=== PATIENT | male | born 1970 | race Caucasian/White ===

== ENCOUNTER 2019-04-28 08:43 | Day surgery (SDC) | payer BC ==
[2019-04-26 10:43] VITALS: BMI 28.0
[~2019-04-28 08:43] MED LIST: LACTATED RINGERS 1,000 ML IV SCH; LIDOCAINE 1% 20 ML VIAL (10MG/ML) FOR IV START INTRADERMA PRN
[2019-04-28 09:04] VITALS: RESP 18; TEMP 97.4
[2019-04-28] MEDS ORDERED: PROPOFOL 10 MG/ML 20 ML VIAL IV ONE (09:44)
[2019-04-28] MEDS ORDERED: LIDOCAINE 1% INJ 10MG/ML (20 ML MDV) ONE (09:44)
--- NOTE | 2019-04-28 09:48 | P.GSHP ---
History of Present Illness H&P Date: 04/28/19 Chief Complaint: Colon cancer screening Patient here today for colonoscopy. Patient's last colonoscopy 10-15 years ago. No bowel related complaints. Family history of numerous polyps in his father. Patient's last colonoscopy was normal. Past Medical History Past Medical History: GERD/Reflux, Hyperlipidemia, Hypertension, Sleep Apnea/CPAP/BIPAP Additional Past Medical History / Comment(s): IBS,restless leg syndrome,no cpap History of Any Multi-Drug Resistant Organisms: None Reported Past Surgical History: Orthopedic Surgery, Tonsillectomy Additional Past Surgical History / Comment(s): deviated septum repair, vasectomy,tube placed left ear. Past Anesthesia/Blood Transfusion Reactions: No Reported Reaction Smoking Status: Never smoker - Past Family History Mother Family Medical History: COPD Father Family Medical History: AICD/Pacemaker, Chest Pain / Angina, Congestive Heart Failure (CHF), Coronary Artery Disease (CAD), GERD/Reflux, Myocardial Infarction ([place]), Vascular Disorder Additional Family Medical History / Comment(s): heart caths with stents Medications and Allergies Home Medications Medication Instructions Recorded Confirmed Type Ibuprofen [Motrin] 800 mg PO Q8HR PRN 07/08/15 04/28/19 History Omeprazole [PriLOSEC] 20 mg PO HS 07/08/15 04/28/19 History Pramipexole [Mirapex] 0.25 mg PO HS 07/08/15 04/28/19 History Lisinopril [Zestril] 10 mg PO QAM 04/26/19 04/28/19 History Pravastatin Sodium [Pravachol] 20 mg PO HS 04/26/19 04/28/19 History Allergies Allergy/AdvReac Type Severity Reaction Status Date / Time No Known Allergies Allergy Verified 04/28/19 09:05 Surgical - Exam Vital Signs Temp Pulse Resp BP Pulse Ox 97.4 F L 66 18 141/90 99 04/28/19 09:03 04/28/19 09:03 04/28/19 09:03 04/28/19 09:03 04/28/19 09:03 Physical exam: General: Well-developed, well-nourished HEENT: Normocephalic, sclerae nonicteric Abdomen: Nontender, nondistended Extremities: No edema Neuro: Alert and oriented Assessment and Plan (1) Colon cancer screening Narrative/Plan: Will proceed with colonoscopy at this time Current Visit: Yes Status: Acute Code(s): Z12.11 - ENCOUNTER FOR SCREENING FOR MALIGNANT NEOPLASM OF COLON SNOMED Code(s): 806098049
--- NOTE | 2019-04-28 10:00 | P.PCN ---
Date of Procedure: 04/28/19 Procedure(s) Performed: PREOPERATIVE DIAGNOSIS: Colon cancer screening, family history of colon polyps POSTOPERATIVE DIAGNOSIS: Diverticulosis PROCEDURE: Colonoscopy ANESTHESIA: MAC SURGEON: Demetrio Mcknight M.D. SPECIMENS: None ENDOSCOPIC PROCEDURE: The patient was placed on the endoscopy table in the left decubitus position. The Olympus colonoscope was inserted into the anus and passed under direct visualization to the base of the cecum. The appendiceal orifice was visualized. From that point the scope was slowly withdrawn inspecting all surfaces carefully. There were no neoplastic inflammatory or polypoid lesions throughout the cecum, ascending, transverse, descending, sigmoid and rectum. There was scattered diverticulosis noted throughout the colon. Digital rectal examination was normal. The patient was taken to the recovery room in stable condition per anesthesia guidelines. RECOMMENDATIONS: Increase fiber. Follow-up colonoscopy 5 years given the family history.
[2019-04-28 10:26] VITALS: BP 123/75; PULSE 69
== END 2019-04-28 10:35 | disposition home or self-care (01) ==
LOC: ORWHC2ENDO 08:43
PROVIDERS: ATTEND Surgery
DX: Z12.11 Encounter for screening for malignant neoplasm of colon (principal); K57.30 Diverticulosis of large intestine without perforation or abscess without bleeding; K58.9 Irritable bowel syndrome, unspecified; I10 Essential (primary) hypertension; E78.5 Hyperlipidemia, unspecified; K21.9 Gastro-esophageal reflux disease without esophagitis; G47.33 Obstructive sleep apnea (adult) (pediatric); G25.81 Restless legs syndrome; Z83.71 Family history of colonic polyps; Z90.89 Acquired absence of other organs; Z98.890 Other specified postprocedural states; Z98.52 Vasectomy status; Z96.22 Myringotomy tube(s) status; Z79.1 Long term (current) use of non-steroidal anti-inflammatories (NSAID); Z79.899 Other long term (current) drug therapy; Z83.6 Family history of other diseases of the respiratory system; Z82.49 Family history of ischemic heart disease and other diseases of the circulatory system
CPT/HCPCS: G0105; J2001; J2704

== ENCOUNTER → 2020-08-14 | Outpatient (CLI) | payer BC | END | disposition home or self-care (01) | LOC: LABWHC1 15:26 | PROVIDERS: ATTEND Family Medicine | DX: Z20.822 Contact with and (suspected) exposure to COVID-19 (principal) | CPT/HCPCS: U0003; C9803 ==

== ENCOUNTER → 2020-10-17 | Outpatient (CLI) | payer BC | END | disposition home or self-care (01) | LOC: LABWHC1 16:19 | PROVIDERS: ATTEND Family Medicine | DX: Z20.822 Contact with and (suspected) exposure to COVID-19 (principal) | CPT/HCPCS: U0003; C9803 ==

== ENCOUNTER 2023-01-25 15:25 | Observation (INO) | payer BC ==
[2023-01-25 16:30] LABS: Basophils % (A) 0 %; Eosinophils # (A) 0.2 k/uL (0-0.7); Eosinophils % (A) 2 %; HCT 48.4 % (39.0-53.0); Lymphocytes # (A) 2.1 k/uL (1.0-4.8); Lymphocytes % (A) 19 %; MCH 32.2 pg (25.0-35.0); MCHC 35.2 g/dL (31.0-37.0); MCV 91.6 fL (80.0-100.0); Mean Platelet Volume 6.7; Monocytes # (A) 0.6 k/uL (0-1.0); Monocytes % (A) 6 %; Neutrophils # (A) 7.6 k/uL (1.3-7.7); Neutrophils % (A) 72 %; Platelet Count 175 k/uL (150-450); RBC 5.29 m/uL (4.30-5.90); RDW 12.8 % (11.5-15.5); WBC 10.7 k/uL (3.8-10.6)
--- NOTE | 2023-01-25 16:35 | XR ---
EXAMINATION TYPE: XR chest 2V DATE OF EXAM: 01/25/2023 4:30 PM COMPARISON: Chest radiographs from 05/04/2011 TECHNIQUE: XR chest 2V Frontal and lateral views of the chest. CLINICAL INDICATION:Male, 52 years old with history of Chest Pain; FINDINGS: Lungs/Pleura: There is no evidence of pleural effusion, focal consolidation, or pneumothorax. Pulmonary vascularity: Unremarkable. Heart/mediastinum: Cardiomediastinal silhouette is unremarkable. Musculoskeletal: No acute osseous pathology. IMPRESSION: No acute cardiopulmonary disease/process.
[2023-01-25 16:37] LABS: INR 0.9 (<1.2); Partial Thromboplastin Time 24.7 sec (22.0-30.0); Prothrombin Time 9.4 sec (9.0-12.0)
[2023-01-25] MEDS ORDERED: NITROGLYCERIN OINT 1 INCH/GM PACKET TOPICAL STA (16:58)
[2023-01-25] MEDS ORDERED: ACETAMINOPHEN TAB 325 MG TAB PO STA ×2 (16:58→22:08)
[2023-01-25 17:02] LABS: ALT 41 U/L (4-49); AST 39 U/L (17-59); African American GFR (CKD) >90 (>60 ml/min/1.73 sqM); Albumin 4.2 g/dL (3.5-5.0); Alkaline Phosphatase 95 U/L (38-126); Anion Gap 10 mmol/L; Blood Urea Nitrogen 20 mg/dL (9-20); Calcium 9.1 mg/dL (8.4-10.2); Carbon Dioxide 21 mmol/L (22-30); Chloride 106 mmol/L (98-107); Glucose 96 mg/dL (74-99); Lipase 180 U/L (23-300); Non-African American GFR(CKD) >90 (>60 ml/min/1.73 sqM); Potassium 4.2 mmol/L (3.5-5.1); Sodium 137 mmol/L (137-145); Total Bilirubin 0.6 mg/dL (0.2-1.3); Total Protein 7.1 g/dL (6.3-8.2)
[2023-01-25 17:10] LABS: NT-Pro-B-Type Natriuretic Pept <20 pg/mL
--- NOTE | 2023-01-25 18:30 | ED ---
Chest Pain HPI - General Chief Complaint: Chest Pain Stated Complaint: Chest pain Time Seen by Provider: 01/25/23 15:45 Source: patient Mode of arrival: ambulatory Limitations: no limitations - History of Present Illness Initial Comments: 52-year-old male with past nuchal history of hypertension, hyperlipidemia, sleep apnea who presents to the emergency department reporting chest pain. States it's been going on since Wednesday night. Described as a pressure sensation in the middle of his chest. Pain has been constant and worsening. States that he has a large family history of cardiac disease. His father is an LVAD patient and had his first heart attack at 41. He follows with a cosmetic account coordinator because of his large family history however has not had a workup in the past several years. Was supposed to have an appointment last week however missed it. He denies associated shortness of breath. No nausea or vomiting. Denies ripping or tearing sensation to his back. Does admit that the pain goes to his left arm. No fevers or cough. No lower extremity swelling. No history of DVT or PE. No other alleviating, precipitating or modifying factors - Related Data Home Medications Medication Instructions Recorded Confirmed Ibuprofen [Motrin] 800 mg PO Q8HR PRN 07/08/15 01/25/23 Omeprazole [PriLOSEC] 20 mg PO HS 07/08/15 01/25/23 Pramipexole [Mirapex] 0.5 mg PO HS 01/25/23 01/25/23 Rosuvastatin [Crestor] 20 mg PO HS 01/25/23 01/25/23 lisinopriL [Zestril] 10 mg PO DAILY 01/25/23 01/25/23 tadalafiL 20 mg PO Q48H PRN 01/25/23 01/25/23 Allergies Allergy/AdvReac Type Severity Reaction Status Date / Time No Known Allergies Allergy Verified 01/25/23 16:32 Review of Systems ROS Statement: Those systems with pertinent positive or pertinent negative responses have been documented in the HPI. ROS Other: All systems not noted in ROS Statement are negative. Past Medical History Past Medical History: GERD/Reflux, Hyperlipidemia, Hypertension, Sleep A pnea/CPAP/BIPAP Additional Past Medical History / Comment(s): IBS,restless leg syndrome,no cpap History of Any Multi-Drug Resistant Organisms: None Reported Past Surgical History: Orthopedic Surgery, Tonsillectomy Additional Past Surgical History / Comment(s): deviated septum repair, vasectomy,tube placed left ear. Past Anesthesia/Blood Transfusion Reactions: No Reported Reaction Past Psychological History: No Psychological Hx Reported Smoking Status: Never smoker Past Alcohol Use History: Occasional Past Drug Use History: None Reported - Past Family History Mother Family Medical History: COPD Father Family Medical History: AICD/Pacemaker, Chest Pain / Angina, Congestive Heart Fa ilure (CHF), Coronary Artery Disease (CAD), GERD/Reflux, Myocardial Infarction ([place]), Vascular Disorder Additional Family Medical History / Comment(s): heart caths with stents General Exam Limitations: no limitations General appearance: alert, in no apparent distress Head exam: Present: atraumatic, normocephalic, normal inspection Eye exam: Present: normal appearance, PERRL, EOMI. Absent: scleral icterus, conjunctival injection, periorbital swelling ENT exam: Present: normal exam, mucous membranes moist Neck exam: Present: normal inspection. Absent: tenderness, meningismus, lymphadenopathy Respiratory exam: Present: normal lung sounds bilaterally. Absent: respiratory distress, wheezes, rales, rhonchi, stridor Cardiovascular Exam: Present: regular rate, normal rhythm, normal heart sounds. Absent: systolic murmur, diastolic murmur, rubs, gallop, clicks GI/Abdominal exam: Present: soft, normal bowel sounds. Absent: distended, tenderness, guarding, rebound, rigid Extremities exam: Present: normal inspection, full ROM, normal capillary refill. Absent: tenderness, pedal edema, joint swelling, calf tenderness Back exam: Present: normal inspection Neurological exam: Present: alert, oriented X3, CN II-XII intact Psychiatric exam: Present: normal affect, normal mood Skin exam: Present: warm, dry, intact, normal color. Absent: rash Course Vital Signs 01/25/23 01/25/23 01/25/23 15:33 15:57 16:41 Temperature 97.8 F 97.8 F Pulse Rate 79 76 80 Respiratory 18 18 18 Rate Blood Pressure 184/119 140/103 140/103 O2 Sat by Pulse 97 96 96 Oximetry 01/25/23 01/25/23 01/25/23 17:23 20:00 20:32 Temperature Pulse Rate 72 76 84 Respiratory 18 16 16 Rate Blood Pressure 145/99 145/96 145/84 O2 Sat by Pulse 97 95 95 Oximetry Chest Pain MDM - MDM Was pt. sent in by a medical professional or institution (MARK Mackay, TELESCOPE OPERATOR, urgent care, hospital, or residential...) When possible be specific @ -No Did you speak to anyone other than the patient for history (EMS, parent, family, police, friend...)? What history was obtained from this source @ -No Did you review nursing and triage notes (agree or disagree)? Why? @ -I reviewed and agree with nursing and triage notes Were old charts reviewed (outside hosp., previous admission, EMS record, old EKG, old radiological studies, urgent care reports/EKG's, residential records)? Report findings @ -No old charts were reviewed Differential Diagnosis (chest pain, altered mental status, abdominal pain women, abdominal pain men, vaginal bleeding, weakness, fever, dyspnea, syncope, headache, dizziness, GI bleed, back pain, seizure, CVA, palpatations, mental health, musculoskeletal)? @ -Differential Chest Pain: Stable Angina, Unstable Angina, STEMI, NSTEMI Aortic Dissection, Pneumothorax, Musculoskeletal, Esophageal Spasm GERD, Cholecystitis, Pancreatitis, Zoster, this is not meant to be an all-inclusive list. EKG interpreted by me (3pts min.). @ -Yes at 1531 and demonstrates sinus rhythm with a rate of 86. MN interval 182. QRS 92. QTC 395. No acute ST segment elevations or depressions Repeat EKG done at 1724 demonstrates sinus rhythm with rate of 70.. 191. QRS 112. QTC of 409. No acute ST segment elevations or depressions X-rays interpreted by me (1pt min.). @ -Yes and demonstrates no acute process CT interpreted by me (1pt min.). @ -None done U/S interpreted by me (1pt. min.). @ -None done What testing was considered but not performed or refused? (CT, X-rays, U/S, labs)? Why? @ -None What meds were considered but not given or refused? Why? @ -None Did you discuss the management of the patient with other professionals (professionals i.e. MARK Mackay, TELESCOPE OPERATOR, lab, RT, psych nurse, oncology social worker, owner professional engineer, teacher, records officer, case assembler)? Give summary @ -I spoke with Dr. owens who was agreeable to admit the patient Was smoking cessation discussed for >3mins.? @ -No Was critical care preformed (if so, how long)? @ -No Were there social determinants of health that impacted care today? How? (Homelessness, low income, unemployed, alcoholism, drug addiction, transportation, low edu. Level, literacy, decrease access to med. care, usp, rehab)? @ -No Was there de-escalation of care discussed even if they declined (Discuss DNR or withdrawal of care, Hospice)? DNR status @ -No What co-morbidities impacted this encounter? (DM, HTN, Smoking, COPD, CAD, Cancer, CVA, ARF, Chemo, Hep., AIDS, mental health diagnosis, sleep apnea, morbid obesity)? @ -hyperlipidemia, hypertension, sleep apnea Was patient admitted / discharged? Hospital course, mention meds given and route, prescriptions, significant lab abnormalities, going to OR and other pertinent info. @ -Upon arrival patient was placed into room 4. A thorough history and physical exam was performed. IV access was established and laboratory studies were conducted. Chest x-ray was performed. Results are discussed with the patient. He continues to have some active chest pain and therefore he is given 4 chewable aspirins and a nitro patch. I did discuss the due to the patient's risk factors that he should be admitted for cardiology consultation for which the patient was agreeable. Called and spoke with Dr. owens who agreed to admit the patient. He was taken to the floor in stable condition Undiagnosed new problem with uncertain prognosis? @ -Yes Drug Therapy requiring intensive monitoring for toxicity (Heparin, Nitro, Insulin, Cardizem)? @ -No Were any procedures done? @ -No Diagnosis/symptom? @ -Acute chest pain, possible ACS Acute, or Chronic, or Acute on Chronic? @ -Acute Uncomplicated (without systemic symptoms) or Complicated (systemic symptoms)? @ -Complicated Side effects of treatment? @ -No Exacerbation, Progression, or Severe Exacerbation? @ -No Poses a threat to life or bodily function? How? (Chest pain, [place], [place], pneumonia, PE, COPD, DKA, ARF, appy, cholecystitis, CVA, Diverticulitis, Homicidal, Suicidal, threat to staff... and all critical care pts) @ -Yes, patient's chest pain may represent acute coronary syndrome Disposition Clinical Impression: Chest pain Disposition: ADMITTED IP TO THIS HOSP Condition: Stable Is patient prescribed a controlled substance at d/c from ED?: No Time of Disposition: 18:30 Decision to Admit Reason: Admit from EC Decision Date: 01/25/23 Decision Time: 18:30
[2023-01-25] MEDS ORDERED: NALOXONE 0.4 MG/ML 1 ML VIAL IV PRN (18:31)
[2023-01-25] MEDS ORDERED: ASPIRIN 81 MG PO STA (18:33)
[2023-01-25] MEDS: FAMOTIDINE 20 MG/2 ML VIAL IV SCH (22:18)
[2023-01-25] MEDS: PRAMIPEXOLE 0.5 MG TAB PO SCH (22:18)
[2023-01-25] MEDS: ATORVASTATIN 20 MG TAB PO SCH (22:20)
[2023-01-26] MEDS: lisinopriL 10 MG TAB PO SCH (09:18)
[2023-01-26] MEDS: FAMOTIDINE 20 MG/2 ML VIAL IV SCH ×2 (09:18→20:34)
--- NOTE | 2023-01-26 10:35 | CA ---
Transthoracic Echo Report Name: Young Steele Age: 52 Gender: M : 1970 Exam Date: 01/26/2023 07:38 Exam Location: [place] [facility] Ht (in): 75 Wt (lb): 220 Ordering Physician: Damaris Ewing DO Attending/Referring Phys: [id number], Kaylin Cash Register Balancer Malinda Rojas [facility] Procedure CPT: Indications: Chest Pain Cardiac Hx: Technical Quality: Fair Contrast 1: Total Dose (mL): Contrast 2: Total Dose (mL): MEASUREMENTS (Male / Female) Normal Values 2D ECHO LV Diastolic Diameter PLAX 4.9 cm 4.2 - 5.9 / 3.9 - 5.3 cm LV Systolic Diameter PLAX 3.1 cm IVS Diastolic Thickness 0.9 cm 0.6 - 1.0 / 0.6 - 0.9 cm LVPW Diastolic Thickness 1.1 cm 0.6 - 1.0 / 0.6 - 0.9 cm LV Relative Wall Thickness 0.4 LVOT Diameter 2.0 cm Ascending Aorta Diameter 3.7 cm M-MODE Aortic Root Diameter MM 3.1 cm LA Systolic Diameter MM 4.4 cm LA Ao Ratio MM 1.4 AV Cusp Separation MM 2.4 cm DOPPLER AV Peak Velocity 131.7 cm/s AV Peak Gradient 6.9 mmHg AV Mean Velocity 101.3 cm/s AV Mean Gradient 4.4 mmHg AV Velocity Time Integral 32.7 cm LVOT Peak Velocity 120.4 cm/s LVOT Peak Gradient 5.8 mmHg LVOT Velocity Time Integral 27.2 cm LVOT Stroke Volume 88.7 cm??? LVOT Stroke Volume Index 38.8 ml/m??? LVOT Cardiac Index 2034.5 cm???/min???m??? AV Area Cont Eq vti 2.7 cm??? AV Area Cont Eq pk 3.0 cm??? Mitral E Point Velocity 64.4 cm/s Mitral A Point Velocity 68.8 cm/s Mitral E to A Ratio 0.9 MV Deceleration Time 195.9 ms LV E' Lateral Velocity 9.7 cm/s Mitral E to LV E' Lateral Ratio 6.7 LV E' Septal Velocity 8.2 cm/s Mitral E to LV E' Septal Ratio 7.8 TR Peak Velocity 204.6 cm/s TR Peak Gradient 16.7 mmHg Right Atrial Pressure 3.0 mmHg Pulmonary Artery Systolic Pressu 19.7 mmHg Right Ventricular Systolic Press 19.7 mmHg FINDINGS Left Ventricle Normal Left ventricular size, wall thickness, systolic function with no obvious regional wall motion abnormalities. Left ventricular ejection fraction is estimated at 55-60 %. Right Ventricle Moderate right ventricular dilatation. Normal right ventricle systolic pressure Right Atrium Mild right atrial dilatation. Left Atrium Mild left atrial dilatation. Mitral Valve Structurally normal mitral valve. moderate mitral regurgitation. Aortic Valve Trileaflet aortic valve. No aortic regurgitation. Tricuspid Valve Structurally normal tricuspid valve. Mild tricuspid regurgitation. Pulmonic Valve Structurally normal pulmonic valve. No pulmonic regurgitation. Pericardium No pericardial effusion. Aorta Normal size aortic root and proximal ascending aorta. CONCLUSIONS 1. Normal left ventricular size and systolic function 2. Dilated right ventricle with normal right ventricle systolic pressure 3. Moderate mitral with mild tricuspid regurgitation Previewed by: Dr. Fady Andre MD (Electronically Signed) Final Date: 26 January 2023 10:33
--- NOTE | 2023-01-26 10:46 | P.CRDCN ---
History of Present Illness Consult date: 01/26/23 Consult reason: chest pain History of present illness: History of present illness: This is a 52-year-old male patient of Dr. Frias with past medical history of hypertension, dyslipidemia, family history of premature coronary artery disease. Patient states that he was cooking on the [employer] on Wednesday and had to get up early in the morning on Wednesday but in the middle of the night he felt a sensation of something was stuck in his esophagus. He got up and drank some water. On Wednesday through the whole day he felt rundown and tired which co ntinued on Wednesday and he slept all day. He had a weird sensation in his hand. Pain is worse when he takes a deep breath. No change with movement. He is normally very active. He denies having any dizziness or lightheadedness, no blood in his stools, no history of CVA or stroke. He does have some palpitations he noted that when he laid on his left side this morning he had palpitations which happened one time. No history of diabetes or COPD. Father had NE at age 45. EKG sinus rhythm with no acute changes Chest x-ray: No acute process Echocardiogram performed on this admission reveals EF 55-60%, normal left ventricular size and systolic function, dilated right ventricle with normal righ t ventricular systolic pressure. Moderate mitral and mild tricuspid regurgitation. WBC 10.7, hemoglobin 17, platelet count 175. INR 0.9. CMP is unremarkable. Magnesium 2.0. Troponin negative 3. Lipase 180. Home cardiac medications: Lisinopril 10 mg daily, Crestor 20 mg at bedtime Review Of Systems: At the time of my evaluation: Constitutional: No fever, no chills. No weakness, fatigue or lethargy. EENT: No headache. No dizziness. Lungs: No shortness of breath, cough, no sputum production. No wheezing. Cardiovascular: No chest pain, no lower extremity edema. No palpitations. No p aroxysmal nocturnal dyspnea. No orthopnea. No lightheadedness or dizziness. No syncopal episodes. Abdominal: No abdominal pain. No nausea, vomiting. No diarrhea. No constipation. No bloody or tarry stools. Genitourinary: No dysuria.. No urinary retention. Musculoskeletal: No myalgias. No muscle weakness, no frequent falls. No back pain. No neck pain. Integumentary: No wounds. No rash. No unusual bruising. Neurologic: No aphasia. No facial droop. No change in mentation. No head injury. No headache. Physical examination: Gen: This is a 52-year-old male. He is resting in bed and appears to be comfortable and in no acute distress VS: reviewed HEENT: Head is atraumatic, normocephalic. Pupils equal, round. Sclerae is anicteric. NECK: Supple. No JVD. . LUNGS: Clear to auscultation. No wheezes or rhonchi. No intercostal retractions. HEART: Regular rate and rhythm. No murmur. ABDOMEN: Soft No tenderness. EXTREMITIES: No pedal edema. No calf tenderness. NEUROLOGICAL: Patient is awake, alert and oriented x3. Assessment: Chest pain, acute coronary syndrome ruled out Hypertension Dyslipidemia Family history of premature coronary artery disease Plan: Resume home medications Obtain stress echocardiogram today Obtain 2-D echocardiogram and Doppler study to assess cardiac structure and function If stress test and echocardiogram are unremarkable, patient is cleared for discharge and may follow-up with Dr. Frias in 1-2 weeks. Thank you kindly for this consultation. Nurse practitioner note has been reviewed, I agree with documented findings and plan of care. Patient was seen and examined. Past Medical History Past Medical History: GERD/Reflux, Hyperlipidemia, Hypertension, Sleep Apnea/CPAP/BIPAP Additional Past Medical History / Comment(s): IBS,restless leg syndrome,no cpap History of Any Multi-Drug Resistant Organisms: None Reported Past Surgical History: Orthopedic Surgery, Tonsillectomy Additional Past Surgical History / Comment(s): deviated septum repair, vasectomy,tube placed left ear. Past Anesthesia/Blood Transfusion Reactions: No Reported Reaction Past Psychological History: No Psychological Hx Reported Smoking Status: Never smoker Past Alcohol Use History: Occasional Past Drug Use History: None Reported - Past Family History Mother Family Medical History: COPD Father Family Medical History: AICD/Pacemaker, Chest Pain / Angina, Congestive Heart Failure (CHF), Coronary Artery Disease (CAD), GERD/Reflux, Myocardial Infarction ([place]), Vascular Disorder Additional Family Medical History / Comment(s): heart caths with stents Medications and Allergies Home Medications Medication Instructions Recorded Confirmed Type Ibuprofen [Motrin] 800 mg PO Q8HR PRN 07/08/15 01/25/23 History Omeprazole [PriLOSEC] 20 mg PO HS 07/08/15 01/25/23 History Pramipexole [Mirapex] 0.5 mg PO HS 01/25/23 01/25/23 History Rosuvastatin [Crestor] 20 mg PO HS 01/25/23 01/25/23 History lisinopriL [Zestril] 10 mg PO DAILY 01/25/23 01/25/23 History tadalafiL 20 mg PO Q48H PRN 01/25/23 01/25/23 History Allergies Allergy/AdvReac Type Severity Reaction Status Date / Time No Known Allergies Allergy Verified 01/25/23 16:32 Physical Exam Vitals: Vital Signs Temp Pulse Pulse Resp BP BP Pulse Ox 01/26/23 00:01 98.0 F 74 15 119/74 94 L 01/25/23 20:45 98.1 F 78 18 163/78 96 01/25/23 20:32 84 16 145/84 95 01/25/23 20:00 76 16 145/96 95 01/25/23 17:23 72 18 145/99 97 01/25/23 16:41 80 18 140/103 96 01/25/23 15:57 97.8 F 76 18 140/103 96 01/25/23 15:33 97.8 F 79 18 184/119 97 Intake and Output 01/25/23 01/26/23 01/26/23 22:59 06:59 14:59 Other: # Voids 1 2 Weight 99.79 kg Results 01/25/23 16:06 01/25/23 16:06 Cardiac Enzymes 01/25/23 01/25/23 01/25/23 Range/Units 16:06 16:06 21:25 AST 39 (17-59) U/L Troponin I <0.012 <0.012 (0.000-0.034) ng/mL 01/25/23 Range/Units 23:54 AST (17-59) U/L Troponin I <0.012 (0.000-0.034) ng/mL Coagulation 01/25/23 Range/Units 16:06 PT 9.4 (9.0-12.0) sec APTT 24.7 (22.0-30.0) sec CBC 01/25/23 Range/Units 16:06 WBC 10.7 H (3.8-10.6) k/uL RBC 5.29 (4.30-5.90) m/uL Hgb 17.0 (13.0-17.5) gm/dL Hct 48.4 (39.0-53.0) % Plt Count 175 (150-450) k/uL Comprehensive Metabolic Panel 01/25/23 Range/Units 16:06 Sodium 137 (137-145) mmol/L Potassium 4.2 (3.5-5.1) mmol/L Chloride 106 (98-107) mmol/L Carbon Dioxide 21 L (22-30) mmol/L BUN 20 (9-20) mg/dL Creatinine 0.84 (0.66-1.25) mg/dL Glucose 96 (74-99) mg/dL Calcium 9.1 (8.4-10.2) mg/dL AST 39 (17-59) U/L ALT 41 (4-49) U/L Alkaline Phosphatase 95 (38-126) U/L Total Protein 7.1 (6.3-8.2) g/dL Albumin 4.2 (3.5-5.0) g/dL Current Medications Generic Name Dose Route Start Last Admin Trade Name Freq PRN Reason Stop Dose Admin Acetaminophen 325 mg 01/25/23 22:08 Acetaminophen Tab 325 Mg Tab PO Q6HR PRN Fever and/ or Pain Atorvastatin Calcium 20 mg 01/25/23 21:30 01/25/23 22:20 Atorvastatin 20 Mg Tab PO 20 mg HS HERMANN Administration Famotidine 20 mg 01/25/23 21:30 01/25/23 22:18 Famotidine 20 Mg/2 Ml Vial IV 20 mg Q12HR HERMANN Administration Lisinopril 10 mg 01/26/23 09:00 Lisinopril 10 Mg Tab PO DAILY HERMANN Naloxone HCl 0.2 mg 01/25/23 18:31 Naloxone 0.4 Mg/Ml 1 Ml Vial IV Q2M PRN Opioid Reversal Pramipexole Dihydrochloride 0.5 mg 01/25/23 21:30 01/25/23 22:18 Pramipexole 0.5 Mg Tab PO 0.5 mg HS HERMANN Administration Intake and Output 01/25/23 01/26/23 01/26/23 22:59 06:59 14:59 Other: # Voids 1 2 Weight 99.79 kg 01/25/23 16:06 01/25/23 16:06
[2023-01-26 11:09] LABS: Basophils # (A) 0.04 X 10*3/uL (0.00-0.10); Basophils % (A) 0.6 %; Eosinophils # (A) 0.15 X 10*3/uL (0.04-0.35); Eosinophils % (A) 2.2 %; HCT 43.6 % (39.6-50.0); HGB 15.3 d/dL (13.0-17.0); Lymphocytes # (A) 2.25 X 10*3/uL (0.90-5.00); Lymphocytes % (A) 33.5 %; MCHC 35.1 d/dL (32.0-37.0); MCV 88.3 FL (80.0-97.0); Mean Platelet Volume 8.8 FL (9.5-12.2); Monocytes # (A) 0.66 X 10*3/uL (0.20-1.00); Monocytes % (A) 9.8 %; NRBC Per 100 WBC 0 X 10*3/uL (0.00-0.01); Neutrophils # (A) 3.59 X 10*3/uL (1.80-7.70); Neutrophils % (A) 53.6 %; Platelet Count 162 X 10*3/uL (140-440); RBC 4.94 X 10*6/uL (4.40-5.60); RDW 12.5 % (11.5-14.5); WBC 6.71 X 10*3/uL (4.50-10.00)
[2023-01-26 11:19] LABS: Blood Urea Nitrogen 21.1 mg/dL (9.0-27.0); Carbon Dioxide 23.6 mmol/L (21.6-31.8); Chloride 107 mmol/L (96-109); Glucose 96 mg/dL (70-110); Potassium 4.2 mmol/L (3.5-5.5); Sodium 142 mmol/L (135-145)
[2023-01-26] MEDS ORDERED: lisinopriL 5 MG TAB PO STA (12:05)
--- NOTE | 2023-01-26 15:02 | CA ---
Stress Echo Report Young Steele Age: 52 Gender: M : 1970 Exam Date: 01/26/2023 12:01 Exam Location: [facility] Ht (in): 75 Wt (lb): 220 Ordering Physician: Luanne Rodriguez Referring Physician: Michael Stroud;[id number] Light Servicer Supervisor: Mike Thomas Technologist Procedure CPT: Indication: CP ICD-9 Codes: Rhythm: Patient History: Cardiac Medications: Medications in past 24 hours: Contrast: Stress Results Protocol: Frederick Total dose(mL): Exercise Duration (min:sec): 12:[address] Depression (mm): 0 Angina Score: 0 Amato Score: 12 METS: 12.3 Resting HR: 60 Resting BP: 141 / 88 Peak HR: 154 Peak BP: 206 / 66 Max Predicted HR: 166 93 % Max Predicted HR Target HR: 141 Double Product: [id number] Stress Summary: The patient's target heart rate was achieved BP Response: Reason for Termination: Reached target heart rate or work-load Cardiac Symptoms: No symptoms ECG Analysis Resting ECG: Normal sinus rhythm, normal ECG Stress ECG: No abnormal ST/T wave changes with exercise Arrhythmia: None Echo Analysis Resting Echo: Normal resting echocardiogram. Peak Echo Analysis: Normal wall thickening and motion MEASUREMENTS (Male/Female) Normal Values CONCLUSIONS Patient falls into low-risk group (DTS >= +5). This associates the patient with an annual CV mortality <= 0.5%. 1. Excellent exercise tolerance 2. Normal electrocardiographic response to exercise 3. Normal stress echocardiogram with no evidence of stress induced ischemia Dr. Fady Andre MD (Electronically Signed) Final Date: 26 January 2023 15:01
--- NOTE | 2023-01-26 15:13 | P.HPIM ---
History of Present Illness H&P Date: 01/26/23 This is a 52 year old male with medical history of hypertension, hyperlipidemia, GERD, sleep apnea does not use CPAP, rest less leg and frequent alcohol use. Never smoker. Patient has strong premature cardiac family history his father has undergone multiple cardiac stenting and currently uses an LVAD device. Patient presents with complaints of feeling as if something is stuck in his throat this has been ongoing since wednesday. Sensation is in the middle of his throat and did not improve with drinking water. Patient states he is able to swallow and eat normally. No nausea or vomiting. He has been fatigued since Wednesday/Wednesday and on Wednesday was sleeping all day. Patient also reports a weird sensation to his left arm and hand. Patient denies any associated dizziness, lightheadedness. Patient denies fever or chills. Initial work up reveals sinus rhythm on EKG. Chest xray negative. Echocardiogram reveals EF 55-60% with normal LV size and systolic function, dilated right ventricle with normal right ventricular systolic pressure, moderate MR and mild TR. Troponin level is negative x3, had mild elevated white count which has since normalized. Cardiology is consulted and patient to undergo dobutamine stress. Patient may benefit from GI evaluation and endoscopy if stress test is negative. REVIEW OF SYSTEMS: CONSTITUTIONAL: No fever, no malaise, Reports fatigue. HEENT: No recent visual problems or hearing problems. Denied any sore throat. CARDIOVASCULAR: Reports chest pain, orthopnea, PND, no palpitations, no syncope. PULMONARY: No shortness of breath, no cough, no hemoptysis. GASTROINTESTINAL: No diarrhea, no nausea, no vomiting, no abdominal pain. NEUROLOGICAL: No headaches, no weakness, no numbness. HEMATOLOGICAL: Denies any bleeding or petechiae. GENITOURINARY: Denies any burning micturition, frequency, or urgency. MUSCULOSKELETAL/RHEUMATOLOGICAL: Denies any joint pain, swelling, or any muscle pain. ENDOCRINE: Denies any polyuria or polydipsia. The rest of the 14-point review of systems is negative. PHYSICAL EXAMINATION: GENERAL: The patient is alert and oriented x3, not in any acute distress. Well developed, well nourished. HEENT: Pupils are round and equally reacting to light. EOMI. No scleral icterus. No conjunctival pallor. Normocephalic, atraumatic. No pharyngeal erythema. No thyromegaly. CARDIOVASCULAR: S1 and S2 present. No murmurs, rubs, or gallops. PULMONARY: Chest is clear to auscultation, no wheezing or crackles. ABDOMEN: Soft, nontender, nondistended, normoactive bowel sounds. No palpable organomegaly. MUSCULOSKELETAL: No joint swelling or deformity. EXTREMITIES: No cyanosis, clubbing, or pedal edema. NEUROLOGICAL: Gross neurological examination did not reveal any focal deficits. SKIN: No rashes. Assessment Acute chest pain rule out ACS Hypertension Hx of GERD Sleep apnea with no CPAP use Hx of hyperlipidemia Restless leg syndrome Frequent alcohol use GI prophylaxis Full Code Plan Patient to undergo stress echocardiogram Consider EGD and GI evaluation if stress is negative and patient remains symptomatic Home medications have been resumed The impression and plan of care has been dictated by Katarina Seo Nurse Practitioner as directed. Dr. Agatha MD I have performed a history and physical examination and medical decision making of this patient, discussed the same with the dictator, and agree with the dictators assessment and plan as written, documented as a scribe. Based on total visit time, I have performed more than 50% of this visit. Past Medical History Past Medical History: GERD/Reflux, Hyperlipidemia, Hypertension, Sleep Apnea/CPAP/BIPAP Additional Past Medical History / Comment(s): IBS,restless leg syndrome,no cpap History of Any Multi-Drug Resistant Organisms: None Reported Past Surgical History: Orthopedic Surgery, Tonsillectomy Additional Past Surgical History / Comment(s): deviated septum repair, vasectom y,tube placed left ear. Past Anesthesia/Blood Transfusion Reactions: No Reported Reaction Past Psychological History: No Psychological Hx Reported Smoking Status: Never smoker Past Alcohol Use History: Occasional Past Drug Use History: None Reported - Past Family History Mother Family Medical History: COPD Father Family Medical History: AICD/Pacemaker, Chest Pain / Angina, Congestive Heart Failure (CHF), Coronary Artery Disease (CAD), GERD/Reflux, Myocardial Infarction ([place]), Vascular Disorder Additional Family Medical History / Comment(s): heart caths with stents Medications and Allergies Home Medications Medication Instructions Recorded Confirmed Type Ibuprofen [Motrin] 800 mg PO Q8HR PRN 07/08/15 01/25/23 History Omeprazole [PriLOSEC] 20 mg PO HS 07/08/15 01/25/23 History Pramipexole [Mirapex] 0.5 mg PO HS 01/25/23 01/25/23 History Rosuvastatin [Crestor] 20 mg PO HS 01/25/23 01/25/23 History lisinopriL [Zestril] 10 mg PO DAILY 01/25/23 01/25/23 History tadalafiL 20 mg PO Q48H PRN 01/25/23 01/25/23 History Allergies Allergy/AdvReac Type Severity Reaction Status Date / Time No Known Allergies Allergy Verified 01/25/23 16:32 Physical Exam Vitals: Vital Signs Temp Pulse Pulse Resp BP BP Pulse Ox 01/26/23 00:01 98.0 F 74 15 119/74 94 L 01/25/23 20:45 98.1 F 78 18 163/78 96 01/25/23 20:32 84 16 145/84 95 01/25/23 20:00 76 16 145/96 95 01/25/23 17:23 72 18 145/99 97 01/25/23 16:41 80 18 140/103 96 01/25/23 15:57 97.8 F 76 18 140/103 96 01/25/23 15:33 97.8 F 79 18 184/119 97 Intake and Output 01/25/23 01/26/23 01/26/23 22:59 06:59 14:59 Other: # Voids 1 2 Weight 99.79 kg Results CBC & Chem 7: 01/26/23 05:44 01/26/23 05:44 Labs: Abnormal Lab Results - Last 24 Hours (Table) 01/25/23 01/25/23 Range/Units 16:06 16:06 WBC 10.7 H (3.8-10.6) k/uL Carbon Dioxide 21 L (22-30) mmol/L Assessment and Plan Time with Patient: Less than 30
[2023-01-26] MEDS: PANTOPRAZOLE 40 MG TABLET PO SCH (20:34)
[2023-01-26] MEDS: ATORVASTATIN 20 MG TAB PO SCH (20:34)
[2023-01-26] MEDS: PRAMIPEXOLE 0.5 MG TAB PO SCH (20:34)
[2023-01-26] MEDS: ACETAMINOPHEN TAB 325 MG TAB PO PRN (21:35)
[2023-01-27] MEDS: FAMOTIDINE 20 MG/2 ML VIAL IV SCH ×2 (08:26→20:36)
[2023-01-27] MEDS: lisinopriL 10 MG TAB PO SCH (08:26)
[2023-01-27] MEDS: IBUPROFEN 800 MG TAB PO PRN ×2 (10:23→18:38)
--- NOTE | 2023-01-27 10:23 | P.PN ---
Subjective Progress Note Date: 01/27/23 History of present illness: This is a 52-year-old male patient of Dr. Frias with past medical history of hypertension, dyslipidemia, family history of premature coronary artery disease. Patient states that he was cooking on the grill on Wednesday and had to get up early in the morning on Wednesday but in the middle of the night he felt a sensation of something was stuck in his esophagus. He got up and drank some water. On Wednesday through the whole day he felt rundown and tired which continued on Wednesday and he slept all day. He had a weird sensation in his hand. Pain is worse when he takes a deep breath. No change with movement. He is normally very active. He denies having any dizziness or lightheadedness, no blood in his stools, no history of CVA or stroke. He does have some palpitations he noted that when he laid on his left side this morning he had palpitations which happened one time. No history of diabetes or COPD. Father had WI at age 45. EKG sinus rhythm with no acute changes Chest x-ray: No acute process Echocardiogram performed on this admission reveals EF 55-60%, normal left ventricular size and systolic function, dilated right ventricle with normal right ventricular systolic pressure. Moderate mitral and mild tricuspid regurgitation. WBC 10.7, hemoglobin 17, platelet count 175. INR 0.9. CMP is unremarkable. Magnesium 2.0. Troponin negative 3. Lipase 180. Home cardiac medications: Lisinopril 10 mg daily, Crestor 20 mg at bedtime 01/27 Patient is seen today in follow-up. No new concerns. He continues to have discomfort in the esophagus area and will be scheduled for EGD today. TSH came back at 2.93. Blood pressure 134/80, heart rate is in the 50s to 80s. Echocardiogram reveals normal left ventricle size and systolic function. Dilated right ventricle with normal right ventricular systolic pressure. Moderate mitral with mild tricuspid regurgitation. Physical examination: Gen: This is a 52-year-old male. He is resting in bed and appears to be comfortable and in no acute distress VS: reviewed HEENT: Head is atraumatic, normocephalic. Pupils equal, round. Sclerae is anicteric. NECK: Supple. No JVD. . LUNGS: Clear to auscultation. No wheezes or rhonchi. No intercostal retractions. HEART: Regular rate and rhythm. No murmur. ABDOMEN: Soft No tenderness. EXTREMITIES: No pedal edema. No calf tenderness. NEUROLOGICAL: Patient is awake, alert and oriented x3. Assessment: Chest pain, acute coronary syndrome ruled out Hypertension Dyslipidemia Family history of premature coronary artery disease Plan: Continue home medications Patient is cleared for discharge and may follow-up with Dr. Frias in 1-2 weeks. Nurse practitioner note has been reviewed, I agree with documented findings and plan of care. Patient was seen and examined. Objective - Vital Signs Vital signs: Vital Signs Temp 97.8 F 01/27/23 06:45 Pulse 50 L 01/27/23 06:45 Resp 18 01/27/23 06:45 BP 134/80 01/27/23 06:45 Pulse Ox 99 01/27/23 06:45 FiO2 Intake & Output 01/26/23 01/27/23 01/27/23 18:59 06:59 18:59 Other: Voiding Method Toilet Toilet # Voids 3 3 - Labs CBC & Chem 7: 01/26/23 05:44 01/26/23 05:44 Labs: Abnormal Lab Results - Last 24 Hours (Table) 01/26/23 01/26/23 Range/Units 05:44 05:44 MPV 8.8 L (9.5-12.2) FL BUN/Creatinine Ratio 21.10 H (12.00-20.00) Ratio
--- NOTE | 2023-01-27 10:44 | P.GSCN ---
History of Present Illness Consult date: 01/27/23 History of present illness: CHIEF COMPLAINT: Chest pain Reason for consult feels like something is stuck in throat HISTORY OF PRESENT ILLNESS: This is a 52-year-old male who presents to the hospital with complaints of chest pain. Patient reports Wednesday evening he had hamburgers for dinner and then woke up around 2 AM Wednesday morning with chest pain and numbness in the arm. And also the sensation that something was stuck in his throat. He did have one episode of vomiting. He slept through most of the day. However continued to have these symptoms and came into the hospital for evaluation of the chest pain due to significant family cardiac history. Patient was seen by cardiology stress echo completed and was normal. Patient was cleared by cardiology for discharge. However, patient continues to have this sensation that something is stuck in his throat. He denies any difficulty swallowing he has been able to eat and drink without difficulty. Denies any abdominal pain. Denies any further episodes of vomiting or nausea. He does have a known history of a hiatal hernia and GERD. Last EGD was about 5 years ago. PAST MEDICAL HISTORY: See below PAST SURGICAL HISTORY: See below MEDICATIONS: See below ALLERGIES: See below SOCIAL HISTORY: No illicit drug use. Frequent EtOH use REVIEW OF SYSTEMS: CONSTITUTIONAL: Denies fever or chills. HEENT: Denies blurred vision, vision changes, or eye pain. Denies hemoptysis CARDIOVASCULAR: Denies chest pain or pressure. RESPIRATORY: No shortness of breath. GASTROINTESTINAL: See HPI for pertinent findings HEMATOLOGIC: Denies bleeding disorders. GENITOURINARY: Denies any blood in urine or increased urinary frequency. SKIN: Denies pruitis. Denies rash. PHYSICAL EXAM: VITAL SIGNS: Reviewed GENERAL: Well-developed in no acute distress. ABDOMEN: Soft. Nondistended. Nontender NEUROLOGIC: Alert and oriented. Cranial nerves II through XII grossly intact. LABORATORY DATA: WBC is 6.71 Hgb 15.3 platelets 162 Sodium 142 potassium 4.2 creatinine 1.0 Troponins negative 3 LFTs and lipase within normal range IMAGING: Chest x-ray no acute cardiopulmonary disease Stress echo no evidence of stress-induced ischemia ASSESSMENT: 1. Sensation that something is stuck in the esophagus 2. Chest pain evaluated by cardiology. Acute coronary syndrome ruled out 3. History of small hiatal hernia and GERD PLAN: -Patient scheduled for EGD tomorrow, 01/28/[address] cerrato -Full liquid diet today -Nothing by mouth after midnight -Continue supportive care Physician Um Rn note has been reviewed by physician. Signing provider agrees with the documented findings, assessment, and plan of care. Past Medical History Past Medical History: GERD/Reflux, Hyperlipidemia, Hypertension, Sleep Apnea/CPAP/BIPAP Additional Past Medical History / Comment(s): IBS,restless leg syndrome,no cpap History of Any Multi-Drug Resistant Organisms: None Reported Past Surgical History: Orthopedic Surgery, Tonsillectomy Additional Past Surgical History / Comment(s): deviated septum repair, vasectomy,tube placed left ear. Past Anesthesia/Blood Transfusion Reactions: No Reported Reaction Past Psychological History: No Psychological Hx Reported Smoking Status: Never smoker Past Alcohol Use History: Occasional Past Drug Use History: None Reported - Past Family History Mother Family Medical History: COPD Father Family Medical History: AICD/Pacemaker, Chest Pain / Angina, Congestive Heart Failure (CHF), Coronary Artery Disease (CAD), GERD/Reflux, Myocardial Infarction ([place]), Vascular Disorder Additional Family Medical History / Comment(s): heart caths with stents Medications and Allergies Home Medications Medication Instructions Recorded Confirmed Type Ibuprofen [Motrin] 800 mg PO Q8HR PRN 07/08/15 01/25/23 History Omeprazole [PriLOSEC] 20 mg PO HS 07/08/15 01/25/23 History Pramipexole [Mirapex] 0.5 mg PO HS 01/25/23 01/25/23 History Rosuvastatin [Crestor] 20 mg PO HS 01/25/23 01/25/23 History lisinopriL [Zestril] 10 mg PO DAILY 01/25/23 01/25/23 History tadalafiL 20 mg PO Q48H PRN 01/25/23 01/25/23 History Allergies Allergy/AdvReac Type Severity Reaction Status Date / Time No Known Allergies Allergy Verified 01/25/23 16:32 Surgical - Exam Vital Signs Temp Pulse Resp BP Pulse Ox 97.8 F 79 18 184/119 97 01/25/23 15:33 01/25/23 15:33 01/25/23 15:33 01/25/23 15:33 01/25/23 15:33 Results - Labs 01/26/23 05:44 01/26/23 05:44 Abnormal Lab Results - Last 24 Hours (Table) 01/26/23 01/26/23 Range/Units 05:44 05:44 MPV 8.8 L (9.5-12.2) FL BUN/Creatinine Ratio 21.10 H (12.00-20.00) Ratio Diabetes panel 01/26/23 Range/Units 05:44 Sodium 142 (135-145) mmol/L Potassium 4.2 (3.5-5.5) mmol/L Chloride 107 (96-109) mmol/L Carbon Dioxide 23.6 (21.6-31.8) mmol/L BUN 21.1 (9.0-27.0) mg/dL Creatinine 1.0 (0.6-1.5) mg/dL Glucose 96 (70-110) mg/dL Calcium 9.0 (8.7-10.3) mg/dL Thyroid panel 01/26/23 Range/Units 05:44 TSH 2.930 (0.350-5.500) UIU/ML Calcium panel 01/26/23 Range/Units 05:44 Calcium 9.0 (8.7-10.3) mg/dL Pituitary panel 01/26/23 01/26/23 Range/Units 05:44 05:44 Sodium 142 (135-145) mmol/L Potassium 4.2 (3.5-5.5) mmol/L Chloride 107 (96-109) mmol/L Carbon Dioxide 23.6 (21.6-31.8) mmol/L BUN 21.1 (9.0-27.0) mg/dL Creatinine 1.0 (0.6-1.5) mg/dL Glucose 96 (70-110) mg/dL Calcium 9.0 (8.7-10.3) mg/dL TSH 2.930 (0.350-5.500) UIU/ML Adrenal panel 01/26/23 Range/Units 05:44 Sodium 142 (135-145) mmol/L Potassium 4.2 (3.5-5.5) mmol/L Chloride 107 (96-109) mmol/L Carbon Dioxide 23.6 (21.6-31.8) mmol/L BUN 21.1 (9.0-27.0) mg/dL Creatinine 1.0 (0.6-1.5) mg/dL Glucose 96 (70-110) mg/dL Calcium 9.0 (8.7-10.3) mg/dL
--- NOTE | 2023-01-27 14:22 | P.PN ---
Subjective Progress Note Date: 01/27/23 This is a 52 year old male with medical history of hypertension, hyperlipidemia, GERD, sleep apnea does not use CPAP, rest less leg and frequent alcohol use. Never smoker. Patient has strong premature cardiac family history his father has undergone multiple cardiac stenting and currently uses an LVAD device. Patient presents with complaints of feeling as if something is stuck in his throat this has been ongoing since wednesday. Sensation is in the middle of his throat and did not improve with drinking water. Patient states he is able to swallow and eat normally. No nausea or vomiting. He has been fatigued since Wednesday/Wednesday and on Wednesday was sleeping all day. Patient also reports a weird sensation to his left arm and hand. Patient denies any associated dizziness, lightheadedness. Patient denies fever or chills. Initial work up reveals sinus rhythm on EKG. Chest xray negative. Echocardiogram reveals EF 55-60% with normal LV size and systolic function, dilated right ventricle with normal right ventricular systolic pressure, moderate MR and mild TR. Troponin level is negative x3, had mild elevated white count which has since normalized. Cardiology is consulted and patient to undergo dobutamine stress. Patient may benefit from GI evaluation and endoscopy if stress test is negative. 01/27/2023 Patient evaluated today sitting up in bed. He continues to report mid chest symptoms with radiation into the left chest and numbness tingling feeling of the left arm. He has 5/5 strength with hand grasp patient feels is weaker than the left. He underwent stress test which was negative for reversible ischemia and has been cleared by cardiology. Evaluated by general surgery who will perform upper endoscopy tomorrow. Due to patients occupation possibility he may have musculoskeletal injury attributing to the radicular symptoms and recommending thoracic xray. Review of Systems Constitutional: Denied any fatigue denied any fever. Cardio vascular: Reports chest discomfort, palpitations Gastrointestinal: denied any nausea, vomiting, diarrhea Pulmonary: Denied any shortness of breath cough Neurologic denied any new focal deficits All inpatient medications were reviewed and appropriate changes in these medications as dictated in the interval history and assessment and plan. PHYSICAL EXAMINATION: GENERAL: The patient is alert and oriented x3, not in any acute distress. Well developed, well nourished. HEENT: Pupils are round and equally reacting to light. EOMI. No scleral icterus. No conjunctival pallor. Normocephalic, atraumatic. No pharyngeal erythema. No thyromegaly. CARDIOVASCULAR: S1 and S2 present. No murmurs, rubs, or gallops. PULMONARY: Chest is clear to auscultation, no wheezing or crackles. ABDOMEN: Soft, nontender, nondistended, normoactive bowel sounds. No palpable organomegaly. MUSCULOSKELETAL: No joint swelling or deformity. EXTREMITIES: No cyanosis, clubbing, or pedal edema. NEUROLOGICAL: Gross neurological examination did not reveal any focal deficits. SKIN: No rashes. Assessment Acute chest pain, atypical, acute coronary syndrome has been ruled out Left arm/hand tingling this is likely radiculopathy Hypertension Hx of GERD Sleep apnea with no CPAP use Hx of hyperlipidemia Restless leg syndrome Frequent alcohol use GI prophylaxis Full Code Plan Cleared by cardiology outpatient f.u Patient will undergo upper endoscopy tomorrow Thoracic and cervical spine xray D/C home in the next 24 hours The impression and plan of care has been dictated by Katarina Seo, Nurse Practitioner as directed. Dr. Agatha MD I have performed a history and physical examination and medical decision making of this patient, discussed the same with the dictator, and agree with the dictators assessment and plan as written, documented as a scribe. Based on total visit time, I have performed more than 50% of this visit. Objective - Vital Signs Vital signs: Vital Signs Temp 97.8 F 01/27/23 06:45 Pulse 50 L 01/27/23 06:45 Resp 18 01/27/23 06:45 BP 134/80 01/27/23 06:45 Pulse Ox 99 01/27/23 06:45 FiO2 Intake & Output 01/26/23 01/27/23 01/27/23 18:59 06:59 18:59 Other: Voiding Method Toilet Toilet # Voids 3 3 - Labs CBC & Chem 7: 01/26/23 05:44 01/26/23 05:44 Labs: Abnormal Lab Results - Last 24 Hours (Table) 01/26/23 01/26/23 Range/Units 05:44 05:44 MPV 8.8 L (9.5-12.2) FL BUN/Creatinine Ratio 21.10 H (12.00-20.00) Ratio Assessment and Plan Time with Patient: Less than 30
--- NOTE | 2023-01-27 15:12 | XR ---
EXAMINATION TYPE: XR thoracic spine 2V DATE OF EXAM: 01/27/2023 3:00 PM INDICATION: Patient age:Male; 52 years old; Reason for study: left arm radiculopathy; COMPARISON: None TECHNIQUE: 2 views of the thoracic spine in Frontal and lateral projections. FINDINGS: No evidence of acute fracture. There is scattered multilevel disk space narrowing without loss of ve rtebral body height. There is normal alignment of the thoracic vertebral bodies. Scattered osteophyte formation along the anterior and lateral aspects of the vertebral bodies. Neural foramen are patent given limitations of this exam. Spinal canal appears patent. IMPRESSION: 1. No acute osseous pathology. 2. Mild degeneration changes throughout the thoracic spine.
--- NOTE | 2023-01-27 15:12 | XR ---
EXAMINATION TYPE: XR cervical spine comp DATE OF EXAM: 01/27/2023 3:00 PM INDICATION: Patient age:Male; 52 years old; Reason for study: left arm radiculopathy; COMPARISON: None TECHNIQUE: The cervical spine was imaged in frontal, lateral, odontoid and bilateral oblique. FINDINGS: The osseous structures show normal alignment without evidence of an acute fracture. There are osteoph ytes noted throughout the cervical spine on the anterior and lateral aspects of the vertebral bodies. The intervertebral disk spaces are narrowed at multiple levels. Pedicles are intact. Soft tissues a re within normal limits. The odontoid appears intact. IMPRESSION: 1. No fracture or dislocation. 2. Mild degenerative disc disease changes of the cervical spine.
[2023-01-27] MEDS: ACETAMINOPHEN TAB 325 MG TAB PO PRN (15:20)
[2023-01-27] MEDS: PRAMIPEXOLE 0.5 MG TAB PO SCH (20:36)
[2023-01-27] MEDS: ATORVASTATIN 20 MG TAB PO SCH (20:36)
[2023-01-27] MEDS: PANTOPRAZOLE 40 MG TABLET PO SCH (20:37)
[2023-01-28 07:01] VITALS: RESP 16
[2023-01-28] MEDS: FAMOTIDINE 20 MG/2 ML VIAL IV SCH (08:13)
[2023-01-28] MEDS: lisinopriL 10 MG TAB PO SCH (08:14)
[2023-01-28] MEDS: IBUPROFEN 800 MG TAB PO PRN (08:26)
--- NOTE | 2023-01-28 11:15 | P.PN ---
Subjective Progress Note Date: 01/28/23 CHIEF COMPLAINT: Sensation that something stuck in the esophagus HISTORY OF PRESENT ILLNESS: Patient perceives feeling slightly better today. Denies any nausea or vomiting. Tolerated diet yesterday. Scheduled for EGD today. Vitals stable. WBC 6.71 Hgb 15.3 sodium 142 potassium 4.2 creatinine 1.0 PHYSICAL EXAM: VITAL SIGNS: Reviewed. GENERAL: Well-developed in no acute distress. ABDOMEN: Soft. Nondistended. Nontender. NEUROLOGIC: Alert and oriented. Cranial nerves II through XII grossly intact. ASSESSMENT: 1. Sensation that something is stuck in the esophagus 2. Chest pain evaluated by cardiology. Acute coronary syndrome ruled out 3. History of small hiatal hernia and GERD PLAN: -Patient scheduled for EGD today Physician Provider Education Specialist note has been reviewed by physician. Signing provider agrees with the documented findings, assessment, and plan of care. Objective - Vital Signs Vital signs: Vital Signs Temp 97.8 F 01/28/23 07:00 Pulse 52 L 01/28/23 07:00 Resp 16 01/28/23 07:00 BP 148/78 01/28/23 07:00 Pulse Ox 98 01/28/23 07:00 FiO2 Intake & Output 01/27/23 01/28/23 01/28/23 18:59 06:59 18:59 Intake Total 518 Balance 518 Intake: Oral 518 Other: Voiding Method Toilet # Voids 1 2 - Labs CBC & Chem 7: 01/26/23 05:44 01/26/23 05:44
[2023-01-28] MEDS ORDERED: PROPOFOL 10 MG/ML 20 ML VIAL IV ONE (11:17)
[2023-01-28] MEDS ORDERED: LIDOCAINE 2% INJ 20 MG/ML (2 ML VIAL) ONE (11:17)
[2023-01-28] MEDS ORDERED: LACTATED RINGERS 1,000 ML IV ONE (11:22)
--- NOTE | 2023-01-28 11:32 | P.OP ---
Date of Procedure: 01/28/23 Preoperative Diagnosis: GERD Postoperative Diagnosis: Antral gastritis Small sliding hiatal hernia Mild esophagitis Procedure(s) Performed: EGD Anesthesia: MAC Surgeon: Hemant Costa Pathology: other (Antrum, esophagus) Condition: stable Disposition: PACU Description of Procedure: The patient's placed on the endoscopy table in the lateral position. He received IV sedation. The gastric scope some placed oropharynx passed in the esophagus and into the stomach. Scope was placed through the pylorus. The first second portion of the duodenum appeared normal. The scope was brought back the antrum this. Mildly inflamed. A biopsies performed. The scope was unretroflexed and remainder the stomach appeared normal. There was a small sliding hiatal hernia. The GE junction was at 38 cm. The distal esophagus was minimal inflamed. A biopsies performed. The proximal esophagus appeared normal. There is no evidence of any esophageal obstruction. The scope was withdrawn for patient.
[2023-01-28 11:53] VITALS: TEMP 97.6
--- NOTE | 2023-01-28 13:36 | CT ---
EXAMINATION TYPE: CT chest angio for PE CT DLP: 418.3 mGycm, Automated exposure control for dose reduction was used. DATE OF EXAM: 01/28/2023 1:24 PM COMPARISON: 05/04/2011. CLINICAL INDICATION:Male, 52 years old with history of elevated D Dimer chest pain; elevated d-dimer TECHNIQUE/CONTRAST: CTA scan of the thorax is performed with IV Contrast, patient injected with 100 mL of Isovue 370, MIP images are created and reviewed these are created on a separate workstation.. FINDINGS: Pulmonary Artery: There is no evidence for a central filling defect within the pulmonary vasculature to suggest acute pulmonary embolism. Limited evaluation of the segmental and subsegmental branches se condary to bolus timing. The pulmonary artery is of normal size. Lungs/Pleura: No evidence of focal consolidation, pleural effusion or pneumothorax. 4 mm groundglass pulmonary nodule series 5 image 90 Airway: Large airways are patent. Heart: Heart is within normal limits for size. Coronary artery calcifications are present. Vasculature: No evidence of aortic aneurysm. Mediastinum: No gross evidence of adenopathy. Musculoskeletal: Mild degenerative disc disease changes are present throughout the thoracolumbar spin e. Soft Tissues: Unremarkable. Lower neck: No significant findings. Upper Abdomen: No significant findings. IMPRESSION: 1. No evidence of central pulmonary embolism. Limited evaluation of the segmental and subsegmental b ranches. 2. 4 mm ground glass pulmonary nodule in the right lower lung.
[2023-01-28 13:59] VITALS: BP 137/82; PULSE 64
--- NOTE | 2023-01-29 23:24 | P.DS ---
Providers Date of admission: 01/25/23 18:32 Attending physician: Dawson Clarke MD Consults: 01/25/23 18:31 Consult Physician Urgent Consulting Provider: [facility] Consult Reason/Comments: acute chest pain, possible acs Do you want consulting provider notified?: Yes 01/26/23 15:19 Consult Physician Routine Consulting Provider: Hemant Costa Consult Reason/Comments: fatigued and feeling like somethings stuck in throat; Request EGD Weds Do you want consulting provider notified?: Yes Primary care physician: Bruno Hendrix [facility] Course: Final Diagnosis Acute chest pain, atypical, acute coronary syndrome has been ruled out Left arm/hand tingling this is likely radiculopathy Esophagitis and sliding hiatal hernia 4mm ground glass lung nodule right upper quad Hypertension Hx of GERD Sleep apnea with no CPAP use Hx of hyperlipidemia Restless leg syndrome Frequent alcohol use Full Code Discharge disposition Patient is stable for discharge, has been cleared by consultations. Patient to follow up with cardiology, GI, general surgery and pulmonary on discharge. Patient requires f/u of the 4mm lung nodule. Recommending to take protonix twice a day for 2 weeks than can transition back to omeprazole at bedtime. Follow diet for gastritis. Hospital Course This is a 52 year old male with medical history of hypertension, hyperlipidemia, GERD, sleep apnea does not use CPAP, rest less leg and frequent alcohol use. Never smoker. Patient has strong premature cardiac family history his father has undergone multiple cardiac stenting and currently uses an LVAD device. Patient presents with complaints of feeling as if something is stuck in his throat this has been ongoing since wednesday. Sensation is in the middle of his throat and did not improve with drinking water. Patient states he is able to swallow and eat normally. No nausea or vomiting. He has been fatigued since Wednesday/Wednesday and on Wednesday was sleeping all day. Patient also reports a weird sensation to his left arm and hand. Patient denies any associated dizziness, lightheadedness. Patient denies fever or chills. Initial work up reveals sinus rhythm on EKG. Chest xray negative. Echocardiogram reveals EF 55-60% with normal LV size and systolic function, dilated right ventricle with normal right ventricular systolic pressure, moderate MR and mild TR. Troponin level is negative x3, had mild elevated white count which has since normalized. Patient admitted to medicine with cardiology consultation underwent dobutamine stress test which was negative, patient was cleared by cardiology still having the feeling as if somethings stuck in his throat and also left arm tingling and chest pain. Patient underwent upper endoscopy which does show esophagitis and sliding hiatal hernia, patient does have history of GERD maintained on omeprazole which will be increased to protonix BID. Biopsies were taken and patient to follow up in the office. A D-dimer was done due to the persistent chest symptoms it was 1.0 and a chest CTA was done which was negative for pulmonary embolism it did show a 4mm groundglass pulmonary noduled in the right lower lung. Currently denying shortness of breath. Lungs are clear S1 S2 auscultated, abdomen is soft and nontender. Patients lungs are clear and S1 S2 auscultated. Discharged home. Please see medication reconciliation for a list of current medication. Thank you for allowing us to participate in the care of this patient. The impression and plan of care has been dictated by Katarina Seo, Nurse Practitioner as directed. Dr. Agatha MD I have performed a history and physical examination and medical decision making of this patient, discussed the same with the dictator, and agree with the dictators assessment and plan as written, documented as a scribe. Based on total visit time, I have performed more than 50% of this visit. Patient Condition at Discharge: Stable Plan - Discharge Summary New Discharge Prescriptions: New Pantoprazole [Protonix] 40 mg PO BID 14 Days #28 tab Atorvastatin [Lipitor] 20 mg PO HS #30 tab Continue Ibuprofen [Motrin] 800 mg PO Q8HR PRN PRN Reason: Pain lisinopriL [Zestril] 10 mg PO DAILY Rosuvastatin [Crestor] 20 mg PO HS Pramipexole [Mirapex] 0.5 mg PO HS tadalafiL 20 mg PO Q48H PRN PRN Reason: E.D. Discontinued Omeprazole [PriLOSEC] 20 mg PO HS Discharge Medication List Ibuprofen [Motrin] 800 mg PO Q8HR PRN 07/08/15 [History] Pramipexole [Mirapex] 0.5 mg PO HS 01/25/23 [History] Rosuvastatin [Crestor] 20 mg PO HS 01/25/23 [History] lisinopriL [Zestril] 10 mg PO DAILY 01/25/23 [History] tadalafiL 20 mg PO Q48H PRN 01/25/23 [History] Atorvastatin [Lipitor] 20 mg PO HS #30 tab 01/28/23 [Rx] Pantoprazole [Protonix] 40 mg PO BID 14 Days #28 tab 01/28/23 [Rx] Follow up Appointment(s)/Referral(s): Zhao Barajas MD [STAFF PHYSICIAN] - 03/11/23 9:00 am Chance Frias MD [STAFF PHYSICIAN] - 02/04/23 10:00 am Bruno Hendrix MD [Primary Care Provider] - 1-2 days Dennise Joseph MD [STAFF PHYSICIAN] - 1 Week (Please call office at [phone] to schedule follow up.) Hemant Costa MD [STAFF PHYSICIAN] - 1 Week Ambulatory/Diagnostic Orders: Basic Metabolic Panel [LAB.AMB] Time Frame: 3 Days, Location: None Selected Patient Instructions/Handouts: Gastritis (DC) Activity/Diet/Wound Care/Special Instructions: Follow up cardiology in 1 to 2 weeks Follow up with your PCP next week Continue same home medications Recommending to take protonix twice a day for 2 weeks than can transition back to omeprazole at bedtime Follow up with general surgery and GI on discharge Follow diet for gastritis Follow up with pulmonary Dr Wilfredo Molina in the office regarding the pulmonary nodule in the right lower lobe. Discharge/Stand Alone Forms: Work/School Release, Work/Release Restrictions Form, Work/School Release / Restrict Discharge Disposition: HOME SELF-CARE
== END 2023-01-28 18:11 | disposition home or self-care (01) ==
LOC: EC 15:25 → 6NMEDSUR 18:32
PROVIDERS: ADMIT Internal Medicine; ATTEND Internal Medicine
DX: R07.89 Other chest pain (principal); K21.00 Gastro-esophageal reflux disease with esophagitis, without bleeding; K29.50 Unspecified chronic gastritis without bleeding; K44.9 Diaphragmatic hernia without obstruction or gangrene; I08.1 Rheumatic disorders of both mitral and tricuspid valves; R20.2 Paresthesia of skin; R53.83 Other fatigue; R00.2 Palpitations; R09.89 Other specified symptoms and signs involving the circulatory and respiratory systems; I25.10 Atherosclerotic heart disease of native coronary artery without angina pectoris; I11.0 Hypertensive heart disease with heart failure; I50.9 Heart failure, unspecified; I10 Essential (primary) hypertension; G47.30 Sleep apnea, unspecified; E78.5 Hyperlipidemia, unspecified; G25.81 Restless legs syndrome; Z82.49 Family history of ischemic heart disease and other diseases of the circulatory system; Z79.899 Other long term (current) drug therapy; K58.9 Irritable bowel syndrome, unspecified; Z98.890 Other specified postprocedural states; Z83.6 Family history of other diseases of the respiratory system; Z95.810 Presence of automatic (implantable) cardiac defibrillator; I25.2 Old myocardial infarction; Z95.5 Presence of coronary angioplasty implant and graft; I99.9 Unspecified disorder of circulatory system
CPT/HCPCS: 96376 ×3; 96374; 99285; 36415; 93005; 93306; 93351; 85379; 88305; 83880; 80053; 80048; 84443; 83690; 83735; 84484; 85025 ×2; 85610; 85730; 72070; 72050; 71046; 71275; 43239; G0378 ×4; J2704; Q9967; J2001

== ENCOUNTER 2024-10-13 21:33 | Observation (INO) | payer BC ==
--- NOTE | 2024-10-13 21:50 | ED ---
General Adult HPI - General Stated complaint: stroke Time Seen by Provider: 10/13/24 21:38 Source: patient Mode of arrival: EMS Limitations: no limitations - History of Present Illness Initial comments: This patient is a 54-year-old man who is brought to have evaluation after having an episode where he " almost went down," at home this evening. The patient reports that he had gone into the kitchen to have something to eat. When he was in there the patient's noticed that he put his hand on his chest and then grabbed the edge of a table he looked like he was going to go to the ground. The patient then was very confused and not speaking right for period of time. EMS arrived and found that he was hypertensive. He was complaining of having some chest pain and headache. They state that he seemed to be somewhat confused and then as they transported the patient he became alert and appropriate. On my arrival at the bedside, the patient states that he was having some headache and chest pain but these things are improving. He did not experience weakness or numbness of the extremities. He had no change in vision. -: minutes(s) Location: head Radiation: non-radiation Quality: aching Consistency: now resolved Improves with: none Worsens with: none Associated Symptoms: confusion, chest pain Treatments Prior to Arrival: none - Related Data Home Medications Medication Instructions Recorded Confirmed Ibuprofen [Motrin] 800 mg PO Q8HR PRN 07/08/15 01/25/23 Pramipexole [Mirapex] 0.5 mg PO HS 01/25/23 01/25/23 Rosuvastatin [Crestor] 20 mg PO HS 01/25/23 01/25/23 lisinopriL [Zestril] 10 mg PO DAILY 01/25/23 01/25/23 tadalafiL 20 mg PO Q48H PRN 01/25/23 01/25/23 Previous Rx's Medication Instructions Recorded Atorvastatin [Lipitor] 20 mg PO HS #30 tab 01/28/23 Pantoprazole [Protonix] 40 mg PO BID 14 Days #28 tab 01/28/23 Allergies Allergy/AdvReac Type Severity Reaction Status Date / Time No Known Allergies Allergy Verified 10/13/24 21:43 Review of Systems ROS Statement: Those systems with pertinent positive or pertinent negative responses have been documented in the HPI. ROS Other: All systems not noted in ROS Statement are negative. Constitutional: Denies: fever, chills, weakness Eyes: Denies: vision change Respiratory: Denies: cough, dyspnea Cardiovascular: Reports: chest pain. Denies: palpitations, orthopnea, edema Gastrointestinal: Denies: abdominal pain, nausea, vomiting, diarrhea Genitourinary: Denies: dysuria, hematuria Musculoskeletal: Denies: back pain Skin: Denies: rash Neurological: Reports: headache, confusion. Denies: weakness, numbness, paresthesias Psychiatric: Reports: anxiety Past Medical History Past Medical History: GERD/Reflux, Hyperlipidemia, Hypertension, Sleep Apnea/CPAP/BIPAP Additional Past Medical History / Comment(s): IBS,restless leg syndrome,no cpap History of Any Multi-Drug Resistant Organisms: None Reported Past Surgical History: Orthopedic Surgery, Tonsillectomy Additional Past Surgical History / Comment(s): deviated septum repair, vasectomy,tube placed left ear. Past Anesthesia/Blood Transfusion Reactions: No Reported Reaction Past Psychological History: No Psychological Hx Reported Smoking Status: Never smoker Past Alcohol Use History: Occasional Past Drug Use History: None Reported - Past Family History Mother Family Medical History: COPD Father Family Medical History: AICD/Pacemaker, Chest Pain / Angina, Congestive Heart Failure (CHF), Coronary Artery Disease (CAD), GERD/Reflux, Myocardial Infarction (VT), Vascular Disorder Additional Family Medical History / Comment(s): heart caths with stents General Exam General appearance: alert, in no apparent distress Head exam: Present: atraumatic, normocephalic Eye exam: Present: normal appearance, PERRL, EOMI. Absent: scleral icterus, conjunctival injection ENT exam: Present: mucous membranes dry Neck exam: Present: normal inspection, full ROM. Absent: tenderness, meningismus Respiratory exam: Present: normal lung sounds bilaterally. Absent: respiratory distress, wheezes, rales, rhonchi, stridor, accessory muscle use Cardiovascular Exam: Present: regular rate, normal rhythm, normal heart sounds. Absent: systolic murmur, diastolic murmur, rubs, gallop GI/Abdominal exam: Present: soft. Absent: distended, tenderness, guarding, rebound, rigid, mass Extremities exam: Present: normal inspection, normal capillary refill. Absent: pedal edema, calf tenderness Back exam: Present: normal inspection. Absent: CVA tenderness (R), CVA tenderness (L) Neurological exam: Present: alert, oriented X3, CN II-XII intact. Absent: motor sensory deficit Skin exam: Present: warm, dry, intact, normal color. Absent: rash Course Vital Signs 10/13/24 21:36 Temperature 97.4 F L Pulse Rate 83 Respiratory 18 Rate Blood Pressure 139/102 O2 Sat by Pulse 100 Oximetry EKG Findings - EKG Results: EKG: interpreted by ERMD, sinus rhythm (Rate 93 bpm), normal axis, normal ST/T - Blocks, [place], Hypertrophy, ST Abn: AV and intraventricular conduction: intraventricular conduction delay Medical Decision Making - Medical Decision Making The patient had chest x-ray that I interpreted as negative for acute infiltrate, pneumothorax, congestive heart failure. The patient had CT scan of the brain that I interpreted as negative for acute intracranial hemorrhage, mass effect, midline shift. - Lab Data Result diagrams: 10/13/24 21:53 10/13/24 21:53 Lab Results 10/13/24 10/13/24 10/13/24 Range/Units 21:39 21:53 21:53 WBC 8.63 (4.50-10.00) 10*3/uL RBC 5.38 (4.40-5.60) 10*6/uL Hgb 16.8 (13.0-17.0) g/dL Hct 45.7 (39.6-50.0) % MCV 84.9 (80.0-97.0) fL MCH 31.2 (27.0-32.0) pg MCHC 36.8 (32.0-37.0) g/dL Plt Count 216 (140-440) 10*3/uL MPV 8.7 L (9.5-12.2) fL Immature Gran % (Auto) 0.3 % Neutrophils % 49.6 % Lymphocytes % 41.8 % Monocytes % 6.8 % Eosinophils % 1.3 % Basophils % 0.2 % Immature Gran # 0.03 (0.00-0.04) 10*3/uL Neutrophils # 4.27 (1.80-7.70) 10*3/uL Lymphocytes # 3.61 (0.90-5.00) 10*3/uL Monocytes # 0.59 (0.20-1.00) 10*3/uL Eosinophils # 0.11 (0.04-0.35) 10*3/uL Basophils # 0.02 (0.00-0.10) 10*3/uL PT 10.8 (10.0-12.5) sec INR 1.0 (<1.2) APTT 24.4 (22.0-30.0) sec Sodium (137-145) mmol/L Potassium (3.5-5.1) mmol/L Chloride (98-107) mmol/L Carbon Dioxide (22-30) mmol/L Anion Gap mmol/L BUN (9-20) mg/dL Creatinine (0.66-1.25) mg/dL Est GFR (CKD-EPI)AfAm (>60 ml/min/1.73 sqM) Est GFR (CKD-EPI)NonAf (>60 ml/min/1.73 sqM) Glucose (74-99) mg/dL POC Glucose (mg/dL) 105 (70-110) mg/dL POC Glu Safety Assistant ID Koko Barnard Calcium (8.4-10.2) mg/dL Magnesium (1.6-2.3) mg/dL Total Bilirubin (0.2-1.3) mg/dL AST (17-59) U/L ALT (4-49) U/L Alkaline Phosphatase (38-126) U/L Total Protein (6.3-8.2) g/dL Albumin (3.5-5.0) g/dL Urine Color Urine Appearance (Clear) Urine pH (5.0-8.0) Ur Specific [place] (1.001-1.035) Urine Protein (Negative) Urine Glucose (UA) (Negative) Urine Ketones (Negative) Urine Blood (Negative) Urine Nitrite (Negative) Urine Bilirubin (Negative) Urine Urobilinogen (<2.0) mg/dL Ur Leukocyte Esterase (Negative) 10/13/24 10/13/24 Range/Units 21:53 21:53 WBC (4.50-10.00) 10*3/uL RBC (4.40-5.60) 10*6/uL Hgb (13.0-17.0) g/dL Hct (39.6-50.0) % MCV (80.0-97.0) fL MCH (27.0-32.0) pg MCHC (32.0-37.0) g/dL Plt Count (140-440) 10*3/uL MPV (9.5-12.2) fL Immature Gran % (Auto) % Neutrophils % % Lymphocytes % % Monocytes % % Eosinophils % % Basophils % % Immature Gran # (0.00-0.04) 10*3/uL Neutrophils # (1.80-7.70) 10*3/uL Lymphocytes # (0.90-5.00) 10*3/uL Monocytes # (0.20-1.00) 10*3/uL Eosinophils # (0.04-0.35) 10*3/uL Basophils # (0.00-0.10) 10*3/uL PT (10.0-12.5) sec INR (<1.2) APTT (22.0-30.0) sec Sodium 136 L (137-145) mmol/L Potassium 3.9 (3.5-5.1) mmol/L Chloride 99 (98-107) mmol/L Carbon Dioxide 24 (22-30) mmol/L Anion Gap 13 mmol/L BUN 14 (9-20) mg/dL Creatinine 1.01 (0.66-1.25) mg/dL Est GFR (CKD-EPI)AfAm >90 (>60 ml/min/1.73 sqM) Est GFR (CKD-EPI)NonAf 83 (>60 ml/min/1.73 sqM) Glucose 95 (74-99) mg/dL POC Glucose (mg/dL) (70-110) mg/dL POC Glu Safety Assistant ID Calcium 9.7 (8.4-10.2) mg/dL Magnesium 2.1 (1.6-2.3) mg/dL Total Bilirubin 0.8 (0.2-1.3) mg/dL AST 36 (17-59) U/L ALT 48 (4-49) U/L Alkaline Phosphatase 62 (38-126) U/L Total Protein 7.4 (6.3-8.2) g/dL Albumin 4.7 (3.5-5.0) g/dL Urine Color Colorless Urine Appearance Clear (Clear) Urine pH 5.0 (5.0-8.0) Ur Specific [place] 1.003 (1.001-1.035) Urine Protein Negative (Negative) Urine Glucose (UA) Negative (Negative) Urine Ketones Negative (Negative) Urine Blood Negative (Negative) Urine Nitrite Negative (Negative) Urine Bilirubin Negative (Negative) Urine Urobilinogen <2.0 (<2.0) mg/dL Ur Leukocyte Esterase Negative (Negative) Disposition Referrals: Bruno Hendrix MD [Primary Care Provider] - 1-2 days
[2024-10-13 21:51] LABS: Glucose,Whole Blood 105 mg/dL (70-110)
[2024-10-13] MEDS: SODIUM CHLORIDE 0.9% 500 ML 500 ML IV STA (21:56)
[2024-10-13 22:07] LABS: Basophils # (A) 0.02 10*3/uL (0.00-0.10); Basophils % (A) 0.2 %; Eosinophils # (A) 0.11 10*3/uL (0.04-0.35); Eosinophils % (A) 1.3 %; HCT 45.7 % (39.6-50.0); HGB 16.8 g/dL (13.0-17.0); Lymphocytes # (A) 3.61 10*3/uL (0.90-5.00); Lymphocytes % (A) 41.8 %; MCH 31.2 pg (27.0-32.0); MCHC 36.8 g/dL (32.0-37.0); MCV 84.9 fL (80.0-97.0); Mean Platelet Volume 8.7 fL (9.5-12.2); Monocytes # (A) 0.59 10*3/uL (0.20-1.00); Monocytes % (A) 6.8 %; Neutrophils # (A) 4.27 10*3/uL (1.80-7.70); Neutrophils % (A) 49.6 %; Platelet Count 216 10*3/uL (140-440); RBC 5.38 10*6/uL (4.40-5.60); RDW 12.1 % (11.5-14.5); WBC 8.63 10*3/uL (4.50-10.00)
[2024-10-13 22:08] LABS: Appearance,Urine Clear (Clear); Bilirubin,Urine Negative (Negative); Blood,Urine Negative (Negative); Color,Urine Colorless; Glucose,Urine (UA) Negative (Negative); Ketones,Urine Negative (Negative); Leukocyte Esterase,Urine Negative (Negative); Nitrite,Urine Negative (Negative); Protein,Urine Negative (Negative); Specific Gravity,Urine 1.003 (1.001-1.035); Urobilinogen,Urine <2.0 mg/dL (<2.0)
[2024-10-13 22:18] LABS: ALT 48 U/L (4-49); AST 36 U/L (17-59); African American GFR (CKD) >90 (>60 ml/min/1.73 sqM); Albumin 4.7 g/dL (3.5-5.0); Alkaline Phosphatase 62 U/L (38-126); Anion Gap 13 mmol/L; Blood Urea Nitrogen 14 mg/dL (9-20); Calcium 9.7 mg/dL (8.4-10.2); Carbon Dioxide 24 mmol/L (22-30); Chloride 99 mmol/L (98-107); Glucose 95 mg/dL (74-99); Magnesium 2.1 mg/dL (1.6-2.3); Non-African American GFR(CKD) 83 (>60 ml/min/1.73 sqM); Partial Thromboplastin Time 24.4 sec (22.0-30.0); Potassium 3.9 mmol/L (3.5-5.1); Prothrombin Time 10.8 sec (10.0-12.5); Sodium 136 mmol/L (137-145); Total Bilirubin 0.8 mg/dL (0.2-1.3); Total Protein 7.4 g/dL (6.3-8.2)
--- NOTE | 2024-10-13 22:22 | CT ---
EXAMINATION TYPE: CODE STROKE: CT brain wo contr DATE OF EXAM: 10/13/2024 10:16 PM COMPARISON: None. CLINICAL INDICATION: Male, 54 years old with history of Neuro deficit, acute, stroke suspected, Neuro deficit, acute, stroke suspected TECHNIQUE: CT of the brain is performed utilizing 3 mm thick sections through the posterior fossa and 3 mm thick sections through the remaining calvarium. Study is performed within 24 hours of arrival to the hospital. Contrast used: mL of , (none if empty) CT DLP: 2100 mGycm, Automated exposure control for dose reduction was used. FINDINGS: No abnormal hyperdensity is present to suggest an acute intracranial hemorrhage. No mass lesion is evident. No acute infarcts are evident. Ventricles and sulci are appropriate for the patient age. Paranasal sinuses and mastoid air cells within the [id number] are clear. IMPRESSION: 1. No acute intracranial process. Follow up MRI can be performed as clinically indicated. [facility], , 10/13/2024 10:20 PM
--- NOTE | 2024-10-13 22:23 | XR ---
EXAMINATION TYPE: XR chest 2V DATE OF EXAM: 10/13/2024 10:13 PM COMPARISON: 01/25/2023 CLINICAL INDICATION: Male, 54 years old with history of syncope, TECHNIQUE: XR chest 2V view(s) obtained. FINDINGS: The heart size is normal. The pulmonary vasculature is normal. The lungs are clear. IMPRESSION: 1. No acute pulmonary process. [facility], , 10/13/2024 10:21 PM
--- NOTE | 2024-10-13 22:34 | CT ---
EXAMINATION TYPE: CT angio head neck DATE OF EXAM: 10/13/2024 10:17 PM COMPARISON: None. CLINICAL INDICATION: Male, 54 years old with history of Neuro deficit, acute, stroke suspected, Neuro deficit, acute, stroke suspected TECHNIQUE: CTA scan is performed with axial images are obtained, coronal and sagittal reformatted kailey ges are reviewed. MIP images created on a separate workstation and submitted for review. 3-D reconstr ucted images are created on an independent workstation and reviewed. Source images are reviewed. PRABHA CET criteria was used in interpretation of this exam? Contrast used:65ml mL of Isovue 370 with IV Contrast, (none if empty) Oral contrast used: (none if empty) CT DLP: 2100 mGycm, Automated exposure control for dose reduction was used. FINDINGS: Carotid/Vascular Structures: Left common carotid artery arises from the innominate. Common carotid arteries bifurcate into internal and external carotid arteries without significant obdulio w limiting stenosis. Left vertebral artery appears dominant. Internal carotid arteries and vertebral arteries are patent to the skull base. Cervical of [place]: Vertebral basilar system appears normal. Posterior cerebral vasculature is unrema rkable. Internal carotid arteries bifurcate normally into A1 and M1 segments. A2 segments are normal. The anterior communicating artery is patent. The right posterior communicating artery is patent. The left posterior communicating artery is patent. IMPRESSION: 1. No flow-limiting stenosis bilateral carotid bifurcations. 2. Normal [place] [facility] [place] [facility], , 10/13/2024 10:32 PM
[2024-10-13] MEDS ORDERED: NITROGLYCERIN SL TABS 0.4 MG TAB SUBLINGUAL PRN (23:41)
[2024-10-13] MEDS: METOPROLOL TARTRATE 25 MG TAB PO STA (23:49)
[2024-10-14] MEDS: HYDROcodone/APAP 5-325MG 1 EACH TAB PO STA (00:04)
[2024-10-14] MEDS: MORPHINE SULFATE 2 MG/ML SYRINGE IVP PRN (02:54)
[2024-10-14] MEDS: lisinopriL 10 MG TAB PO SCH (08:38)
[2024-10-14] MEDS: ASPIRIN 325 MG TAB PO SCH (08:38)
[2024-10-14] MEDS: PANTOPRAZOLE 40 MG TABLET PO SCH (08:38)
[2024-10-14 10:24] LABS: LDL Cholesterol,Calculated 18.8 mg/dL (0.0-131.0)
--- NOTE | 2024-10-14 12:29 | P.HPIM ---
History of Present Illness 54-year-old male is admitted for possible syncope/seizure. Unknown whether patient actually had a syncopal episode. Although family believes he may have had. As per the family patient had 4 episodes of stiffness which are not assoc iated with loss of consciousness or loss of bowel or bladder incontinence or tongue biting. Patient has been under a lot of stress at work and barely sleeps because of that. Patient's EKG is within normal limits no significant electrolyte abnormalities. Cardiology and neurology were consulted for possible syncope and seizure respectively. Patient was also complaining of headache which is occasionally severe involving entire head. Patient's headache is much better now but can get up to 10 has been going on for about a week. Patient had CT angio of the head and neck and CT of the head all of which are within normal limits chest x-ray did not show any significant abnormality REVIEW OF SYSTEMS: All other systems are negative except those mentioned in the HPI PHYSICAL EXAMINATION: GENERAL: The patient is alert and oriented x3, not in any acute distress. Well developed, well nourished. HEENT: Pupils are round and equally reacting to light. EOMI. No scleral icterus. No conjunctival pallor. Normocephalic, atraumatic. No pharyngeal erythema. No thyromegaly. CARDIOVASCULAR: S1 and S2 present. No murmurs, rubs, or gallops. PULMONARY: Chest is clear to auscultation, no wheezing or crackles. ABDOMEN: Soft, nontender, nondistended, normoactive bowel sounds. No palpable organomegaly. MUSCULOSKELETAL: No joint swelling or deformity. EXTREMITIES: No cyanosis, clubbing, or pedal edema. NEUROLOGICAL: Gross neurological examination did not reveal any focal deficits. SKIN: No rashes. Assessment and plan Seizure: Possible seizure secondary to sleep deprivation cannot be ruled out awaiting neurology recommendations possibly will need an EEG.- Syncope possibility: Will monitor overnight on telemetry, echocardiogram. - Hypertension - Hyperlipidemia - Gastroesophageal reflux disease -Sleep apnea - Restless leg syndrome For above-mentioned chronic medical problems DVT prophylaxis: Early ambulation Past Medical History Past Medical History: GERD/Reflux, Hyperlipidemia, Hypertension, Sleep Apnea/CPAP/BIPAP Additional Past Medical History / Comment(s): IBS,restless leg syndrome,no cpap History of Any Multi-Drug Resistant Organisms: None Reported Past Surgical History: Orthopedic Surgery, Tonsillectomy Additional Past Surgical History / Comment(s): deviated septum repair, vasectomy,tube placed left ear. Past Anesthesia/Blood Transfusion Reactions: No Reported Reaction Past Psychological History: No Psychological Hx Reported Smoking Status: Never smoker Past Alcohol Use History: Occasional Past Drug Use History: None Reported - Past Family History Mother Family Medical History: COPD Father Family Medical History: AICD/Pacemaker, Chest Pain / Angina, Congestive Heart Failure (CHF), Coronary Artery Disease (CAD), GERD/Reflux, Myocardial Infarction ([place]), Vascular Disorder Additional Family Medical History / Comment(s): heart caths with stents Medications and Allergies Home Medications Medication Instructions Recorded Confirmed Type Pramipexole [Mirapex] 0.5 mg PO HS 01/25/23 10/14/24 History Rosuvastatin [Crestor] 20 mg PO HS 01/25/23 10/14/24 History Famotidine [Pepcid] 20 mg PO HS 10/14/24 10/14/24 History Omeprazole 20 mg PO BID 10/14/24 10/14/24 History lisinopriL [Zestril] 20 mg PO DAILY 10/14/24 10/14/24 History Allergies Allergy/AdvReac Type Severity Reaction Status Date / Time No Known Allergies Allergy Verified 10/14/24 11:34 Physical Exam Vitals: Vital Signs Temp Pulse Pulse Resp BP BP BP 10/14/24 11:17 10/14/24 07:25 98.0 F 68 17 120/74 10/14/24 02:00 82 10/14/24 01:28 97.5 F L 82 18 135/78 10/14/24 00:52 98.1 F 80 15 111/84 10/13/24 23:29 82 18 128/86 10/13/24 22:15 91 20 143/105 10/13/24 21:36 97.4 F L 83 18 139/102 Pulse Ox 10/14/24 11:17 98 10/14/24 07:25 96 10/14/24 02:00 10/14/24 01:28 97 10/14/24 00:52 97 10/13/24 23:29 97 10/13/24 22:15 96 10/13/24 21:36 100 Intake and Output 10/13/24 10/14/24 10/14/24 22:59 06:59 14:59 Other: # Voids 1 Weight 106.594 kg 106.594 kg Results CBC & Chem 7: 10/13/24 21:53 10/13/24 21:53 Labs: Abnormal Lab Results - Last 24 Hours (Table) 10/13/24 10/13/24 10/14/24 Range/Units 21:53 21:53 04:13 MPV 8.7 L (9.5-12.2) fL Sodium 136 L (137-145) mmol/L Triglycerides 331.00 H (0.00-149.00) mg/dL VLDL Cholesterol, Calc 66.20 H (5.00-40.00) mg/dL HDL Cholesterol 37.00 L (40.00-60.00) mg/dL Thrombosis Risk Factor Assmnt - Choose All That Apply Any of the Below Risk Factors Present?: Yes Each Factor Represents 1 point: Age 41-60 years, Obesity (BMI >25) Other Risk Factors: No Other congenital or acquired thrombophilia - If yes, enter type in comment: No Thrombosis Risk Factor Assessment Total Risk Factor Score: 2 Thrombosis Risk Factor Assessment Level: Low Risk
[2024-10-14] MEDS: IBUPROFEN 800 MG TAB PO PRN (13:27)
[2024-10-14 14:24] LABS: Amphetamine Screen,Urine Not Detected (NotDetected); Barbiturate Screen,Urine Not Detected (NotDetected); Benzodiazepines Screen,Urine Not Detected (NotDetected); Cocaine Screen,Urine Not Detected (NotDetected); Methadone Screen, Urine Not Detected (NotDetected); Opiate Screen,Urine Detected (NotDetected); Oxycodone Screen, Urine Not Detected (NotDetected); Phencyclidine Screen,Urine Not Detected (NotDetected); Tricyclic Antidepressant,Urine Not Detected (NotDetected); Urn Cannabinoid Scrn Not Detected (NotDetected)
--- NOTE | 2024-10-14 15:03 | P.CRDCN ---
History of Present Illness Consult date: 10/14/24 Requesting physician: Tong Winkler Reason for Consult (text): Chest heaviness/possible syncope Chief complaint: Chest discomfort, possible syncope History of present illness: This is a pleasant 54-year-old gentleman patient of Dr. Frias with past medical history of GERD, hypertension, hyperlipidemia, coronary calcifications, family history premature CAD in his dad who had an CT at the age of 45. Presented to the hospital with complaints of chest discomfort, confusion and possible syncope. Patient apparently was walking into the kitchen to get a glass of milk and his witnessed him grabbed his chest he recalls having some chest discomfort and she witnessed him almost fall to the floor it is unclear if he had any true syncope. Patient was disoriented and confused for periods 4 times prior to EMS arrival. Patient has been under an increased amount of stress due to work and recent suspension. He feels he has been drinking too much and drinks about 2 to 324 ounce cans of beer daily on average. Initially said he drank 324 ounce cans yesterday however the does not believe he drink anything at all yesterday. He has apparently been undergoing counseling due to his work issues and recommended to do outpatient rehabilitation. He is quite active and typically does not have any chest discomfort or shortness of breath. He was previously checking his blood pressure regularly at work however has not been checking it recently due to a suspension but feels it has likely been elevated. This morning he continues to feel, according to him, like there is a puppy sitting on his chest. He continues to complain of headache. Diagnostics -EKG: Sinus rhythm with no ST-T wave abnormalities concerning for ischemia -Chest x-ray: No acute pulmonary process -Brain CT: No acute intracranial process -CT angio head neck: No flow-limiting stenosis bilateral carotid bifurcations, normal [facility] [place] -Laboratory studies: White blood cell count 8.63, hemoglobin 16.8, sodium 136, potassium 3.9, BUN 14, creatinine 1.01, troponins negative x 3, total cholesterol 122, LDL 18.8, HDL 37, VLDL 66.2, triglycerides 331 -Home cardiac medications: Lisinopril 20 mg p.o. daily, rosuvastatin 20 mg p.o. nightly -Prior stress test: January 2023 stress echocardiogram with no evidence of stress- induced ischemia -Echocardiogram: January 2023 showed normal LV systolic function dilated RV with normal right ventricular systolic pressure, moderate MR and mild TR. -Cardiac catheterization: None Review Of Systems: At the time of my exam: CONSTITUTIONAL: Denies fever or chills. HEENT: Denies blurred vision, vision changes. CARDIOVASCULAR: Complains of mild chest heaviness. Denies orthopnea. Denies PND. Denies palpitations, dizziness, or syncope. RESPIRATORY: Denies shortness of breath, wheezing, or cough. Denies hemoptysis. GASTROINTESTINAL: Denies abdominal pain. Denies nausea or vomiting. Denies bleeding. HEMATOLOGIC: Denies bleeding disorders. GENITOURINARY: Denies hematuria. SKIN: Denies puritis. Denies rash. PHYSICAL EXAMINATION: This is a 54-year-old gentleman in no apparent distress at the time of my examination. VITAL SIGNS: Reviewed. HEENT: Head is atraumatic, normocephalic. Pupils are equal, round. Sclerae anicteric. Conjunctivae are clear. Mucous membranes of the mouth are moist. Neck is supple. There is no elevated jugular venous pressure. No carotid bruit is heard. CHEST EXAMINATION: Clear to auscultation bilaterally. No wheezes rales or rhonchi. Respirations even and nonlabored. HEART EXAMINATION: Heart regular, positive S1 and S2. No S3. No S4. Systolic murmur. ABDOMEN: Soft, nontender. Bowel sounds are heard. No organomegaly noted. EXTREMITIES: 2+ peripheral pulses with no evidence of peripheral edema and no calf tenderness noted. NEUROLOGIC EXAMINATION: Patient is awake, alert and oriented x3. Assessment: 1. Chest discomfort, acute coronary event has been ruled out, troponins negative x 3 2. Possible syncope, no evidence of arrhythmia on EKG or telemetry, awaiting neurology input 3. Hypertension 4. Hyperlipidemia 5. Alcohol abuse 6. Mention of coronary artery calcifications and office visit note from Dr. Frias 7. GERD Plan: From cardiology's perspective we will obtain a 2D echo with Doppler study to assess cardiac structure and function. Encouraged alcohol cessation. Await neurology input. Depending on findings of the echo and patient's symptoms further recommendations will be made. We will add aspirin 81 mg p.o. daily. Thank you kindly for this consultation. Nurse practitioner note has been reviewed, I agree with documented findings and plan of care. Patient was seen and examined. Past Medical History Past Medical History: GERD/Reflux, Hyperlipidemia, Hypertension, Sleep Apnea/CPAP/BIPAP Additional Past Medical History / Comment(s): IBS,restless leg syndrome,no cpap History of Any Multi-Drug Resistant Organisms: None Reported Past Surgical History: Orthopedic Surgery, Tonsillectomy Additional Past Surgical History / Comment(s): deviated septum repair, vasect jolene,tube placed left ear. Past Anesthesia/Blood Transfusion Reactions: No Reported Reaction Past Psychological History: No Psychological Hx Reported Smoking Status: Never smoker Past Alcohol Use History: Occasional Past Drug Use History: None Reported - Past Family History Mother Family Medical History: COPD Father Family Medical History: AICD/Pacemaker, Chest Pain / Angina, Congestive Heart Failure (CHF), Coronary Artery Disease (CAD), GERD/Reflux, Myocardial Infarction ([place]), Vascular Disorder Additional Family Medical History / Comment(s): heart caths with stents Medications and Allergies Home Medications Medication Instructions Recorded Confirmed Type Pramipexole [Mirapex] 0.5 mg PO HS 01/25/23 10/14/24 History Rosuvastatin [Crestor] 20 mg PO HS 01/25/23 10/14/24 History Famotidine [Pepcid] 20 mg PO HS 10/14/24 10/14/24 History Omeprazole 20 mg PO BID 10/14/24 10/14/24 History lisinopriL [Zestril] 20 mg PO DAILY 10/14/24 10/14/24 History Allergies Allergy/AdvReac Type Severity Reaction Status Date / Time No Known Allergies Allergy Verified 10/14/24 11:34 Physical Exam Vitals: Vital Signs Temp Pulse Pulse Resp BP BP BP 10/14/24 11:17 10/14/24 07:25 98.0 F 68 17 120/74 10/14/24 02:00 82 10/14/24 01:28 97.5 F L 82 18 135/78 10/14/24 00:52 98.1 F 80 15 111/84 10/13/24 23:29 82 18 128/86 10/13/24 22:15 91 20 143/105 10/13/24 21:36 97.4 F L 83 18 139/102 Pulse Ox 10/14/24 11:17 98 10/14/24 07:25 96 10/14/24 02:00 10/14/24 01:28 97 10/14/24 00:52 97 10/13/24 23:29 97 10/13/24 22:15 96 10/13/24 21:36 100 Intake and Output 10/13/24 10/14/24 10/14/24 22:59 06:59 14:59 Other: # Voids 1 Weight 106.594 kg 106.594 kg Results 10/13/24 21:53 10/13/24 21:53 Cardiac Enzymes 10/13/24 10/13/24 10/14/24 Range/Units 21:53 21:53 00:51 AST 36 (17-59) U/L Troponin I <0.012 <0.012 (0.000-0.034) ng/mL 10/14/24 Range/Units 04:13 AST (17-59) U/L Troponin I <0.012 (0.000-0.034) ng/mL Coagulation 10/13/24 Range/Units 21:53 PT 10.8 (10.0-12.5) sec APTT 24.4 (22.0-30.0) sec Lipids 10/14/24 Range/Units 04:13 Triglycerides 331.00 H (0.00-149.00) mg/dL Cholesterol 122.00 (0.00-200.00) mg/dL HDL Cholesterol 37.00 L (40.00-60.00) mg/dL Cholesterol/HDL Ratio 3.30 Ratio CBC 10/13/24 Range/Units 21:53 WBC 8.63 (4.50-10.00) 10*3/uL RBC 5.38 (4.40-5.60) 10*6/uL Hgb 16.8 (13.0-17.0) g/dL Hct 45.7 (39.6-50.0) % Plt Count 216 (140-440) 10*3/uL Comprehensive Metabolic Panel 10/13/24 Range/Units 21:53 Sodium 136 L (137-145) mmol/L Potassium 3.9 (3.5-5.1) mmol/L Chloride 99 (98-107) mmol/L Carbon Dioxide 24 (22-30) mmol/L BUN 14 (9-20) mg/dL Creatinine 1.01 (0.66-1.25) mg/dL Glucose 95 (74-99) mg/dL Calcium 9.7 (8.4-10.2) mg/dL AST 36 (17-59) U/L ALT 48 (4-49) U/L Alkaline Phosphatase 62 (38-126) U/L Total Protein 7.4 (6.3-8.2) g/dL Albumin 4.7 (3.5-5.0) g/dL Current Medications Generic Name Dose Route Start Last Admin Trade Name Ishanq PRN Reason Stop Dose Admin Aspirin 81 mg 10/15/24 09:00 Aspirin 81 Mg PO DAILY [facility] Atorvastatin Calcium 40 mg 10/14/24 21:00 Atorvastatin 40 Mg Tab PO HS HERMANN Ibuprofen 800 mg 10/13/24 23:44 Ibuprofen 800 Mg Tab PO Q8HR PRN Pain Lisinopril 10 mg 10/14/24 09:00 10/14/24 08:38 Lisinopril 10 Mg Tab PO 10 mg DAILY HERMANN Administration Morphine Sulfate 2 mg 10/14/24 02:39 10/14/24 08:38 Morphine Sulfate 2 Mg/Ml Syringe IVP 2 mg Q4HR PRN Administration Pain/Discomfort Nitroglycerin 0.4 mg 10/13/24 23:41 Nitroglycerin Sl Tabs 0.4 Mg Tab SUBLINGUAL Q5M PRN Chest Pain Pantoprazole Sodium 40 mg 10/14/24 09:00 10/14/24 08:38 Pantoprazole 40 Mg Tablet PO 40 mg BID HERMANN Administration Pramipexole Dihydrochloride 0.5 mg 10/14/24 21:00 Pramipexole 0.5 Mg Tab PO HS [facility] Intake and Output 10/13/24 10/14/24 10/14/24 22:59 06:59 14:59 Other: # Voids 1 Weight 106.594 kg 106.594 kg 10/13/24 21:53 10/13/24 21:53
--- NOTE | 2024-10-14 15:44 | CA ---
Transthoracic Echo Report Name: Young Steele Age: 54 Gender: M : 1970 Exam Date: 10/14/2024 13:34 Exam Location: [facility] Ht (in): 75 Wt (lb): 235 Ordering Physician: Palak Coronel Attending/Referring Phys: [id number], Berna Wireline Field Operator Cinthia Rasmussen RDCS Procedure CPT: Indications: AMS, chest pain Cardiac Hx: Technical Quality: Fair Contrast 1: Total Dose (mL): Contrast 2: Total Dose (mL): MEASUREMENTS (Male / Female) Normal Values 2D ECHO LV Diastolic Diameter PLAX 3.9 cm 4.2 - 5.9 / 3.9 - 5.3 cm LV Systolic Diameter PLAX 1.9 cm IVS Diastolic Thickness 1.4 cm 0.6 - 1.0 / 0.6 - 0.9 cm LVPW Diastolic Thickness 1.3 cm 0.6 - 1.0 / 0.6 - 0.9 cm LV Relative Wall Thickness 0.7 RV Internal Dim ED PLAX 4.4 cm LVOT Diameter 2.1 cm LA Volume 50.0 cm??? 18 - 58 / 22 - 52 cm??? LA Volume Index 20.9 cm???/m??? 16 - 28 cm???/m??? DOPPLER MV Area PHT 2.6 cm??? Mitral E Point Velocity 43.9 cm/s Mitral A Point Velocity 70.7 cm/s Mitral E to A Ratio 0.6 MV Deceleration Time 287.9 ms MV E' Velocity 5.0 cm/s Mitral E to MV E' Ratio 8.7 FINDINGS Left Ventricle Mild concentric left ventricular hypertrophy. Left ventricular cavity size normal. Normal left ventricular systolic function with no obvious regional wall motion abnormalities. Left ventricular ejection fraction is estimated at 55-60 %. Right Ventricle Normal right ventricular size and function. Right Atrium Normal right atrial size. Left Atrium Normal left atrial size. Mitral Valve Structurally normal mitral valve. Mild mitral regurgitation. Aortic Valve Trileaflet aortic valve. No aortic valve stenosis or regurgitation. Aortic valve sclerosis. Tricuspid Valve Structurally normal tricuspid valve. Mild tricuspid regurgitation. Pulmonic Valve Structurally normal pulmonic valve. No pulmonic regurgitation. Pericardium No pericardial effusion. Aorta Normal size aortic root and proximal ascending aorta. CONCLUSIONS 1. Normal left ventricular size and systolic function 2. Mild mitral and tricuspid regurgitation Previewed by: Dr. Fady Andre MD (Electronically Signed) Final Date: 14 October 2024 15:43
--- NOTE | 2024-10-14 17:22 | P.CNNES ---
History of Present Illness Consult date: 10/14/24 History of Present Illness: The patient is a 54-year-old male who was seen in neurologic consultation on October 14, 2024, in collaboration with Maegan Bhatia, via teleneurology. History is obtained from the patient's and son who are present at the bedside at the time of the evaluation. The patient's reports that her walked into the kitchen and suddenly grabbed his chest. She said then had a controlled fall, onto the floor. She says he looked like he was going down and she helped him to go slowly to the floor. She believes there was loss of consciousness. She states that after being on the floor, he was "tensing his muscles" she demonstrates this action. She flexes both of her elbows. She does not report that he was actually shaking his arms and legs but just had his elbows flexed and was holding them tight. The patient was reportedly confused. He apparently had a few of these episodes, while laying on the floor. In between these episodes, the patient was reportedly confused. He was speaking but was not making sense. His speech was slightly mumbled. The patient has no history of syncope or seizure. There is no reported tongue biting or loss of bowel and bladder control. The patient has no history of stroke. In review of the cardiology note, it is reported that the patient states that he felt he has been drinking too much alcohol. He did not volunteer this to me. Per cardiology, the patient has been drinking 2 or 3, 24 ounce cans of beer, daily. The patient's reports that he did not drink alcohol on the day this event occurred. The patient's last day of alcohol use is unknown. The patient states that he does recall walking into the kitchen and feeling a tightness in his chest. He says the next thing he recalls is waking up on the floor with "a nathalie in my face". This person apparently was EMS. He says he was ready to "take a swing at the nathalie". He apparently was confused. The patient states that he recalls the ride in the ambulance to the hospital. He recalls being in the emergency department. He recalls receiving a CT scan of his brain. The patient's and son report that he was slightly confused in the emergency department. According to the patient and family, the patient has been under a great deal of stress lately. He has been having difficulty sleeping. In the emergency department, CT scan of the brain was performed. There is no reported evidence of acute hemorrhage or infarct. CT angiogram of the head and neck is negative for significant stenosis and large vessel occlusion. This morning, the patient does report having a headache. He says he had a more severe headache earlier this morning. He apparently received a dose of morphine. The patient himself thought he received ibuprofen. At the time of our evaluation, the patient rates his headache as a 5 out of 10. He does also report muscle aches. Past Medical History Past Medical History: GERD/Reflux, Hyperlipidemia, Hypertension, Sleep Apnea/CPAP/BIPAP Additional Past Medical History / Comment(s): IBS,restless leg syndrome,no cpap History of Any Multi-Drug Resistant Organisms: None Reported Past Surgical History: Orthopedic Surgery, Tonsillectomy Additional Past Surgical History / Comment(s): deviated septum repair, vasectomy,tube placed left ear. Past Anesthesia/Blood Transfusion Reactions: No Reported Reaction Past Psychological History: No Psychological Hx Reported Smoking Status: Never smoker Past Alcohol Use History: Occasional Past Drug Use History: None Reported - Past Family History Mother Family Medical History: COPD Father Family Medical History: AICD/Pacemaker, Chest Pain / Angina, Congestive Heart Failure (CHF), Coronary Artery Disease (CAD), GERD/Reflux, Myocardial Infarction ([place]), Vascular Disorder Additional Family Medical History / Comment(s): heart caths with stents Medications and Allergies Home Medications Medication Instructions Recorded Confirmed Type Pramipexole [Mirapex] 0.5 mg PO HS 01/25/23 10/14/24 History Rosuvastatin [Crestor] 20 mg PO HS 01/25/23 10/14/24 History Famotidine [Pepcid] 20 mg PO HS 10/14/24 10/14/24 History Omeprazole 20 mg PO BID 10/14/24 10/14/24 History lisinopriL [Zestril] 20 mg PO DAILY 10/14/24 10/14/24 History Allergies Allergy/AdvReac Type Severity Reaction Status Date / Time No Known Allergies Allergy Verified 10/14/24 11:34 Physical Examination - Vital Signs Vital Signs: Vital Signs Temp Pulse Pulse Resp BP BP BP 10/14/24 07:25 98.0 F 68 17 120/74 10/14/24 02:00 82 10/14/24 01:28 97.5 F L 82 18 135/78 10/14/24 00:52 98.1 F 80 15 111/84 10/13/24 23:29 82 18 128/86 10/13/24 22:15 91 20 143/105 10/13/24 21:36 97.4 F L 83 18 139/102 Pulse Ox 10/14/24 07:25 96 10/14/24 02:00 10/14/24 01:28 97 10/14/24 00:52 97 10/13/24 23:29 97 10/13/24 22:15 96 10/13/24 21:36 100 Intake and Output 10/13/24 10/14/24 10/14/24 22:59 06:59 14:59 Other: # Voids 1 Weight 106.594 kg 106.594 kg General: The patient is reclining in the bed, well-nourished, well-developed and in no acute distress. HEENT: Head is atraumatic, normocephalic. Fundus not visualized. There is no scleral icterus. Mucous membranes are moist. Neck: Supple without carotid bruits Heart: Regular rate and rhythm Lungs: Essentially clear to auscultation Extremities: Without edema Neurological examination Mental status: The patient is awake, alert and oriented x 3. Speech is clear. There is no dysarthria or aphasia. Cranial nerves: Pupils are equal, and reactive at 3 mm. Visual dawson are full to confrontation. Extraocular movements are intact. There is no nystagmus. Facial sensation is intact. There is no facial asymmetry. Hearing is grossly intact. Uvula and palate are midline. Shoulder shrug is symmetric. Tongue protrudes midline. Motor: Strength is 5/5 throughout. Sensation: Intact to light touch throughout. There is no extinction with double simultaneous stimulation. Coordination: [id number] and rapid alternating movements are intact. There is no pronator drift. [id number]-yr-[id number] testing is intact. Deep tendon reflexes: 2+/4+ at the bilateral biceps, triceps, brachioradialis reflexes. Patellar reflexes 3+/4+. Plantar responses are flexor bilaterally. Gait: Not assessed Results CT scan of the brain images have been personally viewed. I agree with the radiology report - Laboratory Findings CBC and BMP: 10/13/24 21:53 10/13/24 21:53 Abnormal Lab Findings: Abnormal Labs 10/13/24 10/13/24 21:53 21:53 MPV 8.7 L Sodium 136 L Assessment and Plan Assessment: 1. Altered mental status: Possible convulsive syncope versus seizure secondary to stress and sleep deprivation versus alcohol withdrawal seizure (alcohol level was not assessed in the ER) 2. Elevated triglycerides 3. Hypertension 4. Alcohol abuse Plan: 1. EEG has been ordered 2. Recommend thiamine be added to IV 3. Consider CIWA protocol 4. Agree with cardiology evaluation 5. Recommend statin for treatment of markedly elevated triglycerides Thank you for allowing us to participate in care of this patient Time with Patient: Greater than 30 (60 minutes were spent caring for this patient today including, obtaining history, examining the patient, reviewing imaging, chart documentation, labs, placing orders and creating this note)
[2024-10-14] MEDS: ATORVASTATIN 40 MG TAB PO SCH (20:25)
[2024-10-14] MEDS: PRAMIPEXOLE 0.5 MG TAB PO SCH (20:25)
[2024-10-14] MEDS ORDERED: ATORVASTATIN 20 MG TAB PO SCH (21:00)
[2024-10-15] MEDS: ASPIRIN 81 MG PO SCH (08:45)
--- NOTE | 2024-10-15 12:21 | P.PN ---
Subjective Progress Note Date: 10/15/24 This is a pleasant 54-year-old gentleman patient of Dr. Frias with past medical history of GERD, hypertension, hyperlipidemia, coronary calcifications, family history premature CAD in his dad who had an [place] at the age of 45. Presented to the hospital with complaints of chest discomfort, confusion and possible syncope. Patient apparently was walking into the kitchen to get a glass of milk and his witnessed him grabbed his chest he recalls having some chest discomfort and she witnessed him almost fall to the floor it is unclear if he had any true syncope. Patient was disoriented and confused for periods 4 times prior to EMS arrival. Patient has been under an increased amount of stress due to work and recent suspension. He feels he has been drinking too much and drinks about 2 to 324 ounce cans of beer daily on average. Initially said he drank 324 ounce cans yesterday however the does not believe he drink anything at all yesterday. He has apparently been undergoing counseling due to his work issues and recommended to do outpatient rehabilitation. He is quite active and typically does not have any chest discomfort or shortness of breath. He was previously checking his blood pressure regularly at work however has not been checking it recently due to a suspension but feels it has likely been elevated. This morning he continues to feel, according to him, like there is a puppy sitting on his chest. He continues to complain of headache. Diagnostics -EKG: Sinus rhythm with no ST-T wave abnormalities concerning for ischemia -Chest x-ray: No acute pulmonary process -Brain CT: No acute intracranial process -CT angio head neck: No flow-limiting stenosis bilateral carotid bifurcations, normal [place] -Laboratory studies: White blood cell count 8.63, hemoglobin 16.8, sodium 136, potassium 3.9, BUN 14, creatinine 1.01, troponins negative x 3, total cholesterol 122, LDL 18.8, HDL 37, VLDL 66.2, triglycerides 331 -Home cardiac medications: Lisinopril 20 mg p.o. daily, rosuvastatin 20 mg p.o. nightly -Prior stress test: January 2023 stress echocardiogram with no evidence of stress- induced ischemia -Echocardiogram: January 2023 showed normal LV systolic function dilated RV with normal right ventricular systolic pressure, moderate MR and mild TR. -Cardiac catheterization: None 10/15/2024 Patient was seen and examined resting in bed. Continues to complain of headache and feeling somewhat different compared to his baseline. Continues to complain of a soreness in his chest that is constant with no aggravating or relieving factors. Continues to verbalize significant stress related to his issues at work. Echocardiogram with Doppler study showed normal LV systolic function with mild MR and mild TR. PHYSICAL EXAMINATION: This is a 54-year-old gentleman in no apparent distress at the time of my examination. VITAL SIGNS: Reviewed. HEENT: Head is atraumatic, normocephalic. Pupils are equal, round. Sclerae anicteric. Conjunctivae are clear. Mucous membranes of the mouth are moist. Neck is supple. There is no elevated jugular venous pressure. No carotid bruit is heard. CHEST EXAMINATION: Clear to auscultation bilaterally. No wheezes rales or rhonchi. Respirations even and nonlabored. HEART EXAMINATION: Heart regular, positive S1 and S2. No S3. No S4. Systolic murmur. ABDOMEN: Soft, nontender. Bowel sounds are heard. No organomegaly noted. EXTREMITIES: 2+ peripheral pulses with no evidence of peripheral edema and no calf tenderness noted. NEUROLOGIC EXAMINATION: Patient is awake, alert and oriented x3. Assessment: 1. Chest discomfort, acute coronary event has been ruled out, troponins negative x 3 2. Possible syncope, no evidence of arrhythmia on EKG or telemetry, awaiting neurology input 3. Hypertension 4. Hyperlipidemia 5. Alcohol abuse 6. Mention of coronary artery calcifications and office visit note from Dr. Frias 7. GERD Plan: From cardiology's perspective we will obtain stress echocardiogram tomorrow. Increase lisinopril to home dose of 20 mg daily. Encouraged alcohol cessation. Will continue to follow the patient and provide further recommendations accordingly. Patient will require outpatient event monitor which he can obtain from our office after discharge. Nurse practitioner note has been reviewed, I agree with documented findings and plan of care. Patient was seen and examined. Objective - Vital Signs Vital signs: Vital Signs Temp 97.4 F L 10/15/24 07:10 Pulse 61 10/15/24 07:10 Resp 18 10/15/24 07:10 BP 150/90 10/15/24 07:10 Pulse Ox 98 10/15/24 07:10 FiO2 Intake & Output 10/14/24 10/15/24 10/15/24 18:59 06:59 18:59 Intake Total 540 118 Output Total 800 Balance 540 -800 118 Intake: Oral 540 118 Output: Urine 800 Other: # Voids 3 # Bowel Movements 0 - Labs CBC & Chem 7: 10/13/24 21:53 10/13/24 21:53 Labs: Abnormal Lab Results - Last 24 Hours (Table) 10/14/24 Range/Units 13:50 Urine Opiates Screen Detected H (NotDetected)
--- NOTE | 2024-10-15 13:25 | P.PN ---
Subjective 54-year-old male is admitted for possible syncope/seizure. Unknown whether patient actually had a syncopal episode. Although family believes he may have had. As per the family patient had 4 episodes of stiffness which are not associated with loss of consciousness or loss of bowel or bladder incontinence or tongue biting. Patient has been under a lot of stress at work and barely sleeps because of that. Patient's EKG is within normal limits no significant electrolyte abnormalities. Cardiology and neurology were consulted for possible syncope and seizure respectively. Patient was also complaining of headache which is occasionally severe involving entire head. Patient's headache is much better now but can get up to 10 has been going on for about a week. Patient had CT angio of the head and neck and CT of the head all of which are within normal limits chest x-ray did not show any significant abnormality 10/15/2024 Patient has not any chest pain at this time but has significant family history because of which cardiology is recommending stress test patient will undergo stress test tomorrow. Patient will also undergo EEG tomorrow. If those are normal patient will be discharged tomorrow. REVIEW OF SYSTEMS: All other systems are negative except those mentioned in the HPI PHYSICAL EXAMINATION: GENERAL: The patient is alert and oriented x3, not in any acute distress. Well developed, well nourished. HEENT: Pupils are round and equally reacting to light. EOMI. No scleral icterus. No conjunctival pallor. Normocephalic, atraumatic. No pharyngeal erythema. No thyromegaly. CARDIOVASCULAR: S1 and S2 present. No murmurs, rubs, or gallops. PULMONARY: Chest is clear to auscultation, no wheezing or crackles. ABDOMEN: Soft, nontender, nondistended, normoactive bowel sounds. No palpable organomegaly. MUSCULOSKELETAL: No joint swelling or deformity. EXTREMITIES: No cyanosis, clubbing, or pedal edema. NEUROLOGICAL: Gross neurological examination did not reveal any focal deficits. SKIN: No rashes. Assessment and plan Seizure: Possible seizure secondary to sleep deprivation cannot be ruled out awaiting neurology recommendations possibly will need an EEG which will be done tomorrow- Syncope possibility: Will monitor overnight on telemetry, echocardiogram., Stress test tomorrow - Hypertension - Hyperlipidemia - Gastroesophageal reflux disease -Sleep apnea - Restless leg syndrome For above-mentioned chronic medical problems DVT prophylaxis: Early ambulation Objective - Vital Signs Vital signs: Vital Signs Temp 97.4 F L 10/15/24 07:10 Pulse 61 10/15/24 07:10 Resp 18 10/15/24 07:10 BP 150/90 10/15/24 07:10 Pulse Ox 98 10/15/24 07:10 FiO2 Intake & Output 10/14/24 10/15/24 10/15/24 18:59 06:59 18:59 Intake Total 540 118 Output Total 800 Balance 540 -800 118 Intake: Oral 540 118 Output: Urine 800 Other: # Voids 3 # Bowel Movements 0 - Labs CBC & Chem 7: 10/13/24 21:53 10/13/24 21:53 Labs: Abnormal Lab Results - Last 24 Hours (Table) 10/14/24 Range/Units 13:50 Urine Opiates Screen Detected H (NotDetected)
[2024-10-15] MEDS: lisinopriL 20 MG TAB PO SCH (14:40)
--- NOTE | 2024-10-15 14:46 | P.PN ---
Subjective Progress Note Date: 10/15/24 The patient is a 54-year-old male who was seen in neurologic follow-up on October 15, 2024, in collaboration with Maegan Bhatia, via teleneurology. The patient reports that he continues to feel poorly this morning. He says he has a headache. When asked specifically about alcohol, the patient states that he does not drink daily. He says that the physics and astronomy professor incorrectly reported his alcohol consump tion. The patient does report that he had "5 beers, in the span of several hours, on Wednesday". He begins to tell me a long story regarding his afternoon on Wednesday and the fact that he had 1 beer between 3 and 4:45 PM. He says he then drove to [facility]. He returned home at about 7 PM. He says that he then had 2 more beers. When asked whether it was a can or a bottle, the patient reports that it is a 24 ounce can. He said he does typically like to have a beer or 2 after work. The patient denies any more episodes of loss of consciousness or confusion. He is able to tell me that he slept poorly last night. He is aware that he is scheduled to have an EEG and a stress test tomorrow. Objective - Vital Signs Vital signs: Vital Signs Temp 97.4 F L 10/15/24 07:10 Pulse 61 10/15/24 07:10 Resp 18 10/15/24 07:10 BP 150/90 10/15/24 07:10 Pulse Ox 98 10/15/24 07:10 FiO2 Intake & Output 10/14/24 10/15/24 10/15/24 18:59 06:59 18:59 Intake Total 540 118 Output Total 800 Balance 540 -800 118 Intake: Oral 540 118 Output: Urine 800 Other: # Voids 3 # Bowel Movements 0 - Exam General: The patient is reclining in the bed, well-nourished, well-developed and in no acute distress. HEENT: Head is atraumatic, normocephalic. Fundus not visualized. There is no scleral icterus. Mucous membranes are moist. Neurological examination Mental status: The patient is awake, alert and oriented x 3. Speech is clear. There is no dysarthria or aphasia. Cranial nerves: Pupils are equal, and reactive at 3 mm. Visual dawson are full to confrontation. Extraocular movements are intact. There is no nystagmus. Fa cial sensation is intact. There is no facial asymmetry. Hearing is grossly intact. Uvula and palate are midline. Shoulder shrug is symmetric. Tongue protrudes midline. - Labs CBC & Chem 7: 10/13/24 21:53 10/13/24 21:53 Labs: Abnormal Lab Results - Last 24 Hours (Table) 10/14/24 Range/Units 13:50 Urine Opiates Screen Detected H (NotDetected) Assessment and Plan Assessment: 1. Altered mental status: Possible convulsive syncope versus seizure secondary to stress and sleep deprivation-less likely 2. Elevated triglycerides 3. Hypertension 4. Alcohol abuse-the actual amount of alcohol the patient drinks still remains unclear Plan: 1. EEG has been ordered-will be completed tomorrow 2. Recommend thiamine be added to IV 3. Consider CIWA protocol 4. Agree with cardiology evaluation 5. Recommend statin for treatment of markedly elevated triglycerides 6. Dr. Otero will assume neurologic coverage of this patient as of October 16, 2024 Time with Patient: Greater than 30 (35 minutes were spent caring for this patient today including, obtaining an interim history, examining the patient, reviewing imaging, chart documentation, labs and creating this note)
[2024-10-15] MEDS: lisinopriL 10 MG TAB PO STA (15:05)
[2024-10-16] MEDS: lisinopriL 20 MG TAB PO SCH (08:36)
--- NOTE | 2024-10-16 09:03 | P.PN ---
Subjective Progress Note Date: 10/16/24 This is a 54-year-old male who presented to the emergency department after an episode of possible syncope. Patient was reportedly walking into the kitchen to get a glass of milk when his witnessed patient grab his chest and have some chest discomfort and almost fell to the floor. Reportedly patient was disoriented and confused for 4 times prior to EMS arrival. Patient has had increased stress at work with a recent suspension. Prior to episode patient does admit to drinking a few cans of beer. Cardiology and neurology are on consult. Echo yesterday showed normal LV systolic function with mild MR and mild TR. Plan for today is an EEG and a stress echocardiogram. Patient reports a continued headache since Wednesday. Objective - Vital Signs Vital signs: Vital Signs Temp 97.8 F 10/16/24 07:00 Pulse 66 10/16/24 07:00 Resp 16 10/16/24 07:00 BP 119/70 10/16/24 07:00 Pulse Ox 96 10/16/24 07:00 FiO2 Intake & Output 10/15/24 10/16/24 10/16/24 18:59 06:59 18:59 Intake Total 562 Balance 562 Intake: Oral 562 Other: # Voids 3 1 # Bowel Movements 1 - Constitutional General appearance: Present: cooperative, no acute distress - EENT Eyes: Present: PERRLA - Neck Neck: Present: normal ROM. Absent: lymphadenopathy, rigidity - Respiratory Respiratory: bilateral: CTA - Cardiovascular Heart sounds: normal: S1, S2 - Gastrointestinal General gastrointestinal: Present: soft. Absent: tenderness - Integumentary Integumentary: Present: normal, normal turgor - Psychiatric Psychiatric: Present: A&O x's 3, appropriate affect, intact judgment & insight - Labs CBC & Chem 7: 10/13/24 21:53 10/13/24 21:53 Assessment and Plan (1) Hypertension Current Visit: No Status: Acute Priority: High Code(s): I10 - ESSENTIAL (PRIMARY) HYPERTENSION SNOMED Code(s): 18109381 (2) Chest discomfort Current Visit: Yes Status: Acute Code(s): R07.89 - OTHER CHEST PAIN SNOMED Code(s): 104069800 (3) Alcohol abuse Current Visit: Yes Status: Acute Code(s): F10.10 - ALCOHOL ABUSE, UNCOMPLICATED SNOMED Code(s): 87320104 (4) Hyperlipemia Current Visit: Yes Status: Acute Code(s): E78.5 - HYPERLIPIDEMIA, UNSPECIFIED SNOMED Code(s): 41483377 (5) Headache Current Visit: Yes Status: Acute Code(s): R51.9 - HEADACHE, UNSPECIFIED SNOMED Code(s): 63295581 Plan: Appreciate multiple consultants. Await results of EEG and stress test. Patient seen and evaluated by nurse practitioner, physician in agreement with plan.
--- NOTE | 2024-10-16 14:30 | P.PN ---
Subjective Progress Note Date: 10/16/24 Patient was initially seen by Dr. Daniels. Please refer to her note for details. Patient had a syncope versus seizure. Patient says that he was getting cookies from the kitchen, when he felt like a big wave, he grabbed his chest and started falling, when his came over, caught him and he had a controlled fall. He then flopped around and was not speaking coherently. When ship's cook came, he threw up and was slightly combative, screaming for them to get away from him. Patient did not bite his tongue, did not lose control of urine. As per EMS flow sheet, the has reported that patient did not lose consciousness. He just seemed confused to her so she called 911. Fast ED score was negative for stroke. Patient admits to being under a lot of stress from work. He states that on that day, he did drink about 5 beers, in a span of about 6 hours period of time from 3 PM to 9 PM. He states that he does drink 2-3 beers . he does not believe that he had too much alcohol in his system. Unfortunately alcohol level was not checked in the hospital. At present his balance is fine. He denies any numbness or tingling. Patient states that he was admitted for flu from 08/24/2024 through 09/04/2024. Objective - Vital Signs Vital signs: Vital Signs Temp 97.8 F 10/16/24 07:00 Pulse 66 10/16/24 07:00 Resp 16 10/16/24 07:00 BP 119/70 10/16/24 07:00 Pulse Ox 96 10/16/24 07:00 FiO2 Intake & Output 10/15/24 10/16/24 10/16/24 18:59 06:59 18:59 Intake Total 562 Balance 562 Intake: Oral 562 Other: # Voids 3 1 # Bowel Movements 1 - Exam Patient's mental status, speech and language functions are normal. Cranial nerves are normal. No evidence of oral trauma. On muscle strength testing there is no pronator drift and the strength is normal in arms and legs. No ataxia for [id number] or [id number] testing. Tone and bulk of muscles normal. Sensations equal. No neglect. - Labs CBC & Chem 7: 10/13/24 21:53 10/13/24 21:53 Assessment and Plan Assessment: 1. Altered mental status: Possible convulsive syncope versus seizure secondary to stress and sleep deprivation-less likely 2. Elevated triglycerides 3. Hypertension 4. Alcohol abuse-the actual amount of alcohol the patient drinks still remains unclear. Patient states that he did drink about 5 beers over a period of 6 hours. Uncertain if it is contributing to the above syncope versus seizure. Plan: 1. EEG was completely normal awake and drowsy. No focal, lateralized or epileptiform activity was seen. 2. Recommend thiamine be added to IV 3. Consider CIWA protocol, as per Dr. Daniels 4. Agree with cardiology evaluation. Patient undergoing stress testing. 5. Abstain from alcoholism. 6. 2-D echo revealed normal LV size and systolic function with EF 55-60%. Normal left and right atrial size. No significant valvular abnormalities. 7. CTA of head and neck showed no flow-limiting stenosis bilateral carotid bifurcations. Normal [place] of [place]. 8. Lipid panel with cholesterol 122, LDL 18, HDL 66 and triglycerides 331. Patient on Lipitor 40 mg at bedtime.
--- NOTE | 2024-10-16 14:41 | CA ---
Stress Echo Report Young Steele Age: 54 Gender: M : 1970 Exam Date: 10/16/2024 12:45 Exam Location: [facility] Ht (in): 75 Wt (lb): 235 Ordering Physician: Palak Coronel Referring Physician: [id number] Leigh [employer] Supervisor: BRANDEN Technologist Procedure CPT: Indication: chest pain, syncope ICD-9 Codes: Rhythm: Patient History: CHEST PAIN, NUMBNESS IN FACE/NECK, HTN, HYPERCHOLESTEROLEMIA, FAMILY HX OF HEART DISEASE, PRIOR HEART CATH Cardiac Medications: Medications in past 24 hours: Contrast: Stress Results Protocol: Frederick Total dose(mL): Exercise Duration (min:sec): 9:[address] Depression (mm): Angina Score: Amato Score: METS: 12.1 Resting HR: 78 Resting BP: 143 / 97 Peak HR: 170 Peak BP: 212 / 76 Max Predicted HR: 164 104 % Max Predicted HR Target HR: 139 Double Product: [id number] Stress Summary: BP Response: Reason for Termination: MAX EXERTION/TARGET HR Cardiac Symptoms: NO SYMPTOMS ECG Analysis Resting ECG: Normal sinus rhythm with nonspecific IVCD Stress ECG: No significant ST-T wave changes that are diagnostic for ischemia by ST segment analysis Arrhythmia: There were no sustained arrhythmias or ectopic beats noted during the stress test Echo Analysis Resting Echo: Peak Echo Analysis: MEASUREMENTS (Male/Female) Normal Values CONCLUSIONS Good exercise tolerance achieving 12.1 METS Hypertensive response to exercise Nonischemic ECG and echocardiographic response to treadmill exercise Normal clinical response to treadmill exercise Overall low probability for severe obstructive CAD Dr Shukri Walton (Electronically Signed) Final Date: 16 October 2024 14:40
--- NOTE | 2024-10-16 14:42 | P.PN ---
Subjective Progress Note Date: 10/16/24 This is a pleasant 54-year-old gentleman patient of Dr. Frias with past medical history of GERD, hypertension, hyperlipidemia, coronary calcifications, family history premature CAD in his dad who had an [place] at the age of 45. Presented to the hospital with complaints of chest discomfort, confusion and pos sible syncope. Patient apparently was walking into the kitchen to get a glass of milk and his witnessed him grabbed his chest he recalls having some chest discomfort and she witnessed him almost fall to the floor it is unclear if he had any true syncope. Patient was disoriented and confused for periods 4 times prior to EMS arrival. Patient has been under an increased amount of stress due to work and recent suspension. He feels he has been drinking too much and drinks about 2 to 324 ounce cans of beer daily on average. Initially said he drank 324 ounce cans yesterday however the does not believe he drink anything at all yesterday. He has apparently been undergoing counseling d ue to his work issues and recommended to do outpatient rehabilitation. He is quite active and typically does not have any chest discomfort or shortness of breath. He was previously checking his blood pressure regularly at work however has not been checking it recently due to a suspension but feels it has likely been elevated. This morning he continues to feel, according to him, like there is a puppy sitting on his chest. He continues to complain of headache. Diagnostics -EKG: Sinus rhythm with no ST-T wave abnormalities concerning for ischemia -Chest x-ray: No acute pulmonary process -Brain CT: No acute intracranial process -CT angio head neck: No flow-limiting stenosis bilateral carotid bifurcations, normal [place] -Laboratory studies: White blood cell count 8.63, hemoglobin 16.8, sodium 136, potassium 3.9, BUN 14, creatinine 1.01, troponins negative x 3, total cholesterol 122, LDL 18.8, HDL 37, VLDL 66.2, triglycerides 331 -Home cardiac medications: Lisinopril 20 mg p.o. daily, rosuvastatin 20 mg p.o. nightly -Prior stress test: January 2023 stress echocardiogram with no evidence of stress- induced ischemia -Echocardiogram: January 2023 showed normal LV systolic function dilated RV with normal right ventricular systolic pressure, moderate MR and mild TR. -Cardiac catheterization: None 10/15/2024 Patient was seen and examined resting in bed. Continues to complain of headache and feeling somewhat different compared to his baseline. Continues to complain of a soreness in his chest that is constant with no aggravating or relieving factors. Continues to verbalize significant stress related to his issues at work. Echocardiogram with Doppler study showed normal LV systolic function with mild MR and mild TR. 10/16/2024 Patient is doing well from cardiovascular standpoint. Denies any chest pain chest pressure. He had a treadmill based stress test which were nonrevealing BP 111/75, heart rate 66 bpm PHYSICAL EXAMINATION: This is a 54-year-old gentleman in no apparent distress at the time of my examination. VITAL SIGNS: Reviewed. HEENT: Head is atraumatic, normocephalic. Pupils are equal, round. Sclerae anicteric. Conjunctivae are clear. Mucous membranes of the mouth are moist. Neck is supple. There is no elevated jugular venous pressure. No carotid bruit is heard. CHEST EXAMINATION: Clear to auscultation bilaterally. No wheezes rales or rhonchi. Respirations even and nonlabored. HEART EXAMINATION: Heart regular, positive S1 and S2. No S3. No S4. Systolic murmur. ABDOMEN: Soft, nontender. Bowel sounds are heard. No organomegaly noted. EXTREMITIES: 2+ peripheral pulses with no evidence of peripheral edema and no calf tenderness noted. NEUROLOGIC EXAMINATION: Patient is awake, alert and oriented x3. Assessment: 1. Chest discomfort, acute coronary event has been ruled out, troponins negative x 3 2. Possible syncope, no evidence of arrhythmia on EKG or telemetry, awaiting neurology input 3. Hypertension 4. Hyperlipidemia 5. Alcohol abuse 6. Mention of coronary artery calcifications and office visit note from Dr. Frias 7. GERD Plan: Continue aspirin, Lipitor, lisinopril Recommend a 14-day extended Holter monitor to be picked up from the [facility] office. At this time patient is cleared from cardiovascular standpoint Recommend outpatient follow-up with cardiology Objective - Vital Signs Vital signs: Vital Signs Temp 97.6 F 10/16/24 14:35 Pulse 103 H 10/16/24 14:35 Resp 15 10/16/24 14:35 BP 111/75 10/16/24 14:35 Pulse Ox 96 10/16/24 14:35 FiO2 Intake & Output 10/15/24 10/16/24 10/16/24 18:59 06:59 18:59 Intake Total 562 Balance 562 Intake: Oral 562 Other: # Voids 3 1 4 # Bowel Movements 1 - Labs CBC & Chem 7: 10/13/24 21:53 10/13/24 21:53
--- NOTE | 2024-10-16 21:36 | EEG ---
ELECTROENCEPHALOGRAM REPORT PREAMBLE: This is a 54-year-old male with altered mental status. CURRENT MEDICATIONS: 1. Morphine. 2. Mirapex. 3. Zestril. EEG FINDINGS: This is a 21-channel digital EEG recorded with video component, utilizing 10/20 international system with referential and bipolar montages. Background consists of well developed, well-regulated moderate voltage activity in 9 to 10 Hz alpha. Background is posterior dominant and is reactive to eye opening and closing. Photic driving response was not seen. Some drowsiness was seen with the appearance of bilaterally symmetric theta frequency rhythm. Deeper stages of sleep were not seen. No focal or generalized epileptiform activity was seen. Hyperventilation was not done. IMPRESSION: This is a normal, awake, and drowsy EEG. No focal, lateralized, or epileptiform activity was seen. MMODL / IJN: [id number] /
[2024-10-17 07:17] VITALS: BP 124/66; PULSE 66; RESP 15; TEMP 98.7
--- NOTE | 2024-10-17 08:31 | P.DS ---
Providers Date of admission: 10/13/24 23:42 Attending physician: Bruno Hendrix Consults: 10/13/24 23:41 Consult Physician Routine Consulting Provider: Feliberto Molina Consult Reason/Comments: Acute altered mental status. Possible TIA. Do you want consulting provider notified?: Yes 10/14/24 05:00 Consult Physician Routine Consulting Provider: [facility] Consult Reason/Comments: chest heaviness/possible syncope Do you want consulting provider notified?: Yes, Notify in am Primary care physician: Bruno Hendrix - Discharge Diagnosis(es) (1) Hypertension Current Visit: No Status: Acute Priority: High (2) Chest discomfort Current Visit: Yes Status: Acute (3) Hyperlipemia Current Visit: Yes Status: Acute (4) Headache Current Visit: Yes Status: Acute Hospital Course: This is a 54-year-old male who originally presented to the emergency department after an episode of possible syncope. Patient was seen and evaluated by cardiology and neurology who have both cleared patient to go home. Patient had an echocardiogram and a stress test both which were normal. Patient also had an EEG which was also normal. Cardiology is recommending a 14-day event monitor to be placed as an outpatient at their office. Patient seen and evaluated by nurse practitioner, physician in agreement with plan. Plan - Discharge Summary New Discharge Prescriptions: New Aspirin 81 mg PO DAILY 30 Days #30 tab Continue lisinopriL [Zestril] 20 mg PO DAILY Omeprazole 20 mg PO BID Famotidine [Pepcid] 20 mg PO HS Rosuvastatin [Crestor] 20 mg PO HS Pramipexole [Mirapex] 0.5 mg PO HS Discharge Medication List Pramipexole [Mirapex] 0.5 mg PO HS 01/25/23 [History] Rosuvastatin [Crestor] 20 mg PO HS 01/25/23 [History] Famotidine [Pepcid] 20 mg PO HS 10/14/24 [History] Omeprazole 20 mg PO BID 10/14/24 [History] lisinopriL [Zestril] 20 mg PO DAILY 10/14/24 [History] Aspirin 81 mg PO DAILY 30 Days #30 tab 10/17/24 [Rx] Follow up Appointment(s)/Referral(s): Fady Andre MD [STAFF PHYSICIAN] - 1 Week Bruno Hendrix MD [Primary Care Provider] - 1 Week Discharge Disposition: HOME SELF-CARE 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
== END 2024-10-17 12:10 | disposition home or self-care (01) ==
LOC: EC 21:33 → 6NMEDSUR 23:42
PROVIDERS: ADMIT Family Medicine; ATTEND Family Medicine
DX: R07.89 Other chest pain (principal); R41.82 Altered mental status, unspecified; R51.9 Headache, unspecified; E78.1 Pure hyperglyceridemia; F10.10 Alcohol abuse, uncomplicated; G47.30 Sleep apnea, unspecified; K21.9 Gastro-esophageal reflux disease without esophagitis; I10 Essential (primary) hypertension; G25.81 Restless legs syndrome; I25.10 Atherosclerotic heart disease of native coronary artery without angina pectoris; Z79.899 Other long term (current) drug therapy; Z82.49 Family history of ischemic heart disease and other diseases of the circulatory system
CPT/HCPCS: 96376 ×4; 96374 ×2; 99285; 36415; 94760; 95816; 93005; 93306; 93351; 80061; 80053; 83735; 84484 ×2; 85025; 85610; 85730; 81003; 80306; 71046; 70496; 70450; 70498; G0378 ×5; J2270 ×4; Q9967